=== PATIENT | female | born 1990 | race Caucasian/White ===

== ENCOUNTER 2024-04-15 19:30 | Emergency (ER) | payer OTHER, SELFPAY ==
[2024-04-15 19:45] VITALS: O2SAT 100
[2024-04-15 19:51] VITALS: BP 144/87; PULSE 80; RESP 16; TEMP 37.1; O2SAT 100; BMI 22.3
[2024-04-15 20:38] LABS: Appearance Urine Clear (Clear); Bilirubin Urine 1+ (Negative); Blood Urine Trace-intact (Negative); Color Urine Orange (Yellow); Glucose Urine Negative (Negative); Ketones Urine 3+ (Negative); Leukocyte Esterase Urine Negative (Negative); Nitrite Urine Negative (Negative); Protein Urine 2+ (Negative); Specific Gravity Urine >= 1.030 (1.000-1.030); Urobilinogen Urine 0.2 (0.2-1.0)
[2024-04-15] MEDS: 0.9 % SODIUM CHLORIDE 500 ML 500 ML IV (20:39)
[2024-04-15 20:49] LABS: Bacteria Urine Moderate; Squamous Epithelial Cell Urine Many (None-Few); Starch Urine Many
[2024-04-15 20:52] LABS: Amphetamine Screen Urine Negative (Negative); Barbiturate Screen Urine Negative (Negative); Benzodiazepines Screen Urine Negative (Negative); Cannabinoid Screen Urine Negative (Negative); Cocaine Screen Urine Negative (Negative); Methadone Screen Urine Negative (Negative); Methamphetamines Screen Urine Negative (Negative); Opiate Screen Urine Negative (Negative); Oxycodone Screen Urine Negative (Negative); Phencyclidine Screen Urine Negative (Negative); Tricyclic Antidepressant Urine Negative (Negative)
[2024-04-15 21:00] VITALS: BP 138/84; PULSE 79; RESP 16; TEMP 37.1; O2SAT 100
[2024-04-15 21:00] LABS: Basophils Absolute Auto 0.02 K/uL (0.00-0.30); Basophils Percent Auto 0.3 % (0.0-3.0); Eosinophils Absolute Auto 0.01 K/uL (0.00-0.50); Eosinophils Percent Auto 0.2 % (0.0-7.0); Hematocrit 38.9 % (33.0-51.0); Immature Granulocytes Abs Auto 0.01 K/uL (0.00-0.30); Immature Granulocytes Pct Auto 0.2 %; Mean Corpuscular HGB Conc 33 gm/dL (32-36); Mean Corpuscular Hemoglobin 34 pg (26-34); Mean Corpuscular Volume 101 fL (80-100); Monocytes Percent Auto 7.8 % (0.0-11.0); Neutrophils Percent Auto 80.5 % (42.0-72.0); Platelet Count* 182 K/uL (140-440); RDW Coefficient of Variation % 12.5 % (11.5-15.5); Red Blood Count 3.86 m/uL (4.00-5.20); White Blood Count* 6.66 K/uL (4.50-11.00)
[2024-04-15 21:05] LABS: Slide Review Reflex No
[2024-04-15 21:16] LABS: Chloride* 96 mmol/L (96-114); Potassium* 3.6 mmol/L (3.6-5.1); Sodium* 133 mmol/L (135-149)
[2024-04-15 21:19] LABS: Anion Gap 12 mEq/L (7-15); Blood Urea Nitrogen* 9 mg/dL (5-24); Calcium* 9.6 mg/dL (8.4-10.6); Carbon Dioxide* 25 mmol/L (20-32); Creatinine* 0.5 mg/dL (0.5-1.5); Est. Creatinine Clearance* 149.81; Estimated Glomerular Filt Rate 127 ml/min; Glucose* 91 mg/dL (60-115)
[2024-04-15 21:20] LABS: Amylase* 79 U/L (18-89); Aspartate Amino Transferase* 29 U/L (12-35); Bilirubin Direct* 0.4 mg/dL (0.0-0.5); Total Protein* 8.1 g/dL (6.0-8.3)
[2024-04-15 21:21] LABS: Alanine Aminotransferase* 19 U/L (4-35); Alkaline Phosphatase* 56 U/L (40-150); Lipase* 64 U/L (23-300)
[2024-04-15 21:22] LABS: Fecal Occult Blood* Negative (Negative)
--- NOTE | 2024-04-15 21:23 | ED_ITS ---
HPI - Nausea/Vomiting/Diarrhea General Date Seen: 04/15/24 Chief complaint: Nausea/Vomiting Stated complaint: vomitting, black stool Time Seen by Provider: 04/15/24 20:12 Source: patient and family Mode of arrival: ambulatory Limitations: no limitations History of Present Illness HPI Narrative: Patient is a very nice 33-year-old female who presents here with approximately 2 weeks of nausea on and off, she is easily vomiting once per twice a day usually bile stains fluid. She feels better after she vomits, but it the feeling comes back last night it was worse in the middle the night and actually woke her up. She is not really taking any medications for this. She has not lost any weight, has had some black stools but admits that she is taking Pepto-Bismol. Denies use of ibuprofen Aleve or any other NSAIDs. She is sexually active with her , and is not using contraception but she took a test before she came in and was negative. Denies any significant back pain associated with this a little bit of abdominal discomfort, nothing severe denies any fevers chills or sweats, there has been no weight loss, or any other swelling or redness or rashes. No other people are sick. In the past she has had some problems with reflux and did take a course of Protonix. No history of any abdominal surgeries in the past. No vaginal discharge She does drink alcohol she does socially every day or every other day. Occasional marijuana, but not on a consistent basis no other drugs. A Onset (ago): week(s) Description of vomiting: bilious Description of diarrhea: black tarry Associated nausea: Yes Associated abdominal pain: Yes Location of pain: diffuse Radiation: diffuse Pain consistency: intermittent Severity: moderate Quality: cramping and aching Exacerbating factors: none Relieving factors: none Associated symptoms: nausea/vomiting and decreased urine output Treatment prior to arrival: none Related Data Previous Rx's ?Medication ?Instructions ?Recorded pantoprazole 40 mg tablet,delayed 40 mg PO DAILY #30 tabs 04/15/24 release (Protonix) Allergies Allergy/AdvReac Type Severity Reaction Status Date / Time No Known Drug Allergies Allergy Verified 04/15/24 22:20 Review of Systems Status of ROS: Reports: 10 or more systems reviewed and unremarkable except as noted in History and below GI: Reports: nausea PFSH PFSH Social History Smoking Status: Never smoker Second hand tobacco smoke exposure: No How often do you have a drink containing alcohol: never AUDIT-C Alcohol total score: 0 Non-prescribed substance use: denies use Exam Narrative: Exam Narrative: She is seen in room 3 she is in no apparent distress, alert oriented x3, normal BMI. Pupils are equal round reactive to light there is no scleral icterus redness or TMs are normal oropharynx is normal her neck is supple there is no meningismus, thyroid normal midline palpable not enlarged her chest is good air entry bilaterally with no wheezing crackles noted her heart sounds are normal her abdomen is soft scaphoid no evidence of any significant tenderness organomegaly noted bowel sounds are normal, moves all extremities independently and well no CVA tenderness. Rectal exam is done with nurse present shows some black stools. Hemoccult descent. Const: Vital Signs, click to edit/add: Vital Signs - 24 hr 04/15/24 19:45 04/15/24 19:51 04/15/24 21:00 Temperature 98.7 F 98.7 F Pulse Rate [Right Radial] 80 79 Respiratory Rate 16 16 Blood Pressure [Ri ght Upper Arm] 144/87 H 138/84 Pulse Oximetry 100 100 100 04/15/24 22:47 04/15/24 22:51 Temperature 98.7 F 98.7 F Pulse Rate [Right Radial] 74 74 Respiratory Rate 16 16 Blood Pressure [Ri ght Upper Arm] 135/74 135/74 Pulse Oximetry 100 Documenting provider has reviewed patient's vital signs: yes Course Course ED Course: I discussed with the patient, and her laboratory work was reassuring. There is no evidence of blood on the fecal occult testing. I believe that the black stools are likely related to her taking Pepto-Bismol. I do think however that some nausea medicine may be helpful for her along with the Protonix has sometimes reflux can cause the above symptoms. I also think that she needs follow-up and she may need further testing based on that. I did offer to do a CT scan tonight but after discussion with her she has declined. Vital Signs Vital signs: Initial Vital Signs Pulse Oximetry 100 04/15/24 19:45 Vital Signs Pulse Oximetry 100 04/15/24 19:45 Temperature 98.7 F 04/15/24 22:51 Pulse Rate 74 04/15/24 22:51 Respiratory Rate 16 04/15/24 22:51 Blood Pressure 135/74 04/15/24 22:51 Pulse Oximetry 100 04/15/24 22:47 Medications Administered Medications: Generic Name Dose Route Start Last Admin Trade Name Fe PRN Reason Stop Dose Admin Oral Electrolytes 1,014 ml 04/15/24 21:24 04/15/24 21:47 Electrolytes/Dextrose Oral [place] 1,000 Ml PO 1,014 ml ONCE PRN Administration Discontinued Medications Generic Name Dose Route Start Last Admin Trade Name Fe PRN Reason Stop Dose Admin Sodium Chloride 500 mls @ 500 mls/hr 04/15/24 20:26 04/15/24 21:47 0.9 % Sodium Chloride 500 Ml IV 04/15/24 21:25 Infused .Q1H ONE Infusion Ondansetron HCl 4 mg 04/15/24 21:24 04/15/24 21:46 Ondansetron 2 Mg/Ml Inj IVP 04/15/24 21:25 4 mg ONCE ONE Administration Pantoprazole Sodium 40 mg 04/15/24 21:35 04/15/24 21:46 Pantoprazole Sodium 40 Mg Inj IVP 04/15/24 21:36 40 mg ONCE ONE Administration MDM - Nausea/Vomiting/Diarrhea MDM Narrative Medical decision making narrative: Differential diagnosis includes but is not limited to viral gastroenteritis, drug food poisoning, pyloric stenosis, gastritis, pancreatitis, hepatitis, cholecystitis, appendicitis, bowel obstruction, hyperemesis, cyclic vomiting syndrome, bulimia nervosa, migraine headache, motion sickness and medication side effect. These include the life threatening complications of appendicitis, drug food poisoning and bowel obstruction. Medical Records Attestation: I reviewed the patient's medical records. Lab Data Attestation: I reviewed the patient's lab results. Labs: Lab Results 04/15/24 04/15/24 04/15/24 Range/Units 20:25 20:33 20:35 WBC 6.66 (4.50-11.00) K/uL RBC 3.86 L (4.00-5.20) m/uL Hgb 13.0 (12.0-16.0) gm/dL Hct 38.9 (33.0-51.0) % MCV 101 H (80-100) fL MCH 34 (26-34) pg MCHC 33 (32-36) gm/dL RDW Coeff of [place] 12.5 (11.5-15.5) % Plt Count 182 (140-440) K/uL Neut % (Auto) 80.5 H (42.0-72.0) % Lymph % (Auto) 11.0 L (20-44) % [place] % (Auto) 7.8 (0.0-11.0) % Eos % (Auto) 0.2 (0.0-7.0) % Baso % (Auto) 0.3 (0.0-3.0) % Neut # (Auto) 5.40 (1.7-7.0) K/uL Lymph # (Auto) 0.70 L (0.90-2.90) K/uL [place] # (Auto) 0.50 (0.00-0.90) K/UL Eos # (Auto) 0.01 (0.00-0.50) K/uL Baso # (Auto) 0.02 (0.00-0.30) K/uL Abs Immat Gran (auto) 0.01 (0.00-0.30) K/uL Imm/Tot Granulo (auto) 0.2 % Sodium 133 L (135-149) mmol/L Potassium 3.6 (3.6-5.1) mmol/L Chloride 96 (96-114) mmol/L Carbon Dioxide 25 (20-32) mmol/L Anion Gap 12 (7-15) mEq/L BUN 9 (5-24) mg/dL Creatinine 0.5 (0.5-1.5) mg/dL Estimated Creat Clear 149.81 Estimated GFR 127 ml/min Glucose 91 (60-115) mg/dL Calcium 9.6 (8.4-10.6) mg/dL Total Bilirubin 1.0 (0.1-1.5) mg/dL Direct Bilirubin 0.4 (0.0-0.5) mg/dL AST 29 (12-35) U/L ALT 19 (4-35) U/L Alkaline Phosphatase 56 (40-150) U/L C-Reactive Protein < 0.5 L (0.5-1.0) mg/dL Total Protein 8.1 (6.0-8.3) g/dL Albumin 5.0 (3.3-5.0) g/dL Amylase 79 (18-89) U/L Lipase 64 (23-300) U/L HCG, Qual Negative (Negative) Urine Color [place] A (Yellow) Urine Appearance Clear (Clear) Urine pH 6.0 (5.0-8.5) Ur Specific [place] >= 1.030 (1.000-1.030) Urine Protein 2+ A (Negative) Urine Glucose (UA) Negative (Negative) Urine Ketones 3+ A (Negative) Urine Blood Trace-intact A (Negative) Urine Nitrite Negative (Negative) Urine Bilirubin 1+ A (Negative) Urine Urobilinogen 0.2 (0.2-1.0) Ur Leukocyte Esterase Negative (Negative) Urine RBC 2-5 A (0-2) Urine WBC 2-5 (0-5) Ur Squamous Epith Cells Many A (None-Few) Urine Bacteria Moderate A (None) Urine Starch Many A (None) Stool Occult Blood (Negative) Urine Opiates Screen Negative (Negative) Ur Oxycodone Screen Negative (Negative) Urine Methadone Screen Negative (Negative) Ur Barbiturates Screen Negative (Negative) U Tricyclic Antidepress Negative (Negative) Ur Phencyclidine Scrn Negative (Negative) Ur Amphetamines Screen Negative (Negative) U Methamphetamines Scrn Negative (Negative) U Benzodiazepines Scrn Negative (Negative) Urine Cocaine Screen Negative (Negative) U Marijuana (THC) Screen Negative (Negative) Ur Drug Screen Comment See Note 04/15/24 Range/Units 21:10 WBC (4.50-11.00) K/uL RBC (4.00-5.20) m/uL Hgb (12.0-16.0) gm/dL Hct (33.0-51.0) % MCV (80-100) fL MCH (26-34) pg MCHC (32-36) gm/dL RDW Coeff of [place] (11.5-15.5) % Plt Count (140-440) K/uL Neut % (Auto) (42.0-72.0) % Lymph % (Auto) (20-44) % [place] % (Auto) (0.0-11.0) % Eos % (Auto) (0.0-7.0) % Baso % (Auto) (0.0-3.0) % Neut # (Auto) (1.7-7.0) K/uL Lymph # (Auto) (0.90-2.90) K/uL [place] # (Auto) (0.00-0.90) K/UL Eos # (Auto) (0.00-0.50) K/uL Baso # (Auto) (0.00-0.30) K/uL Abs Immat Gran (auto) (0.00-0.30) K/uL Imm/Tot Granulo (auto) % Sodium (135-149) mmol/L Potassium (3.6-5.1) mmol/L Chloride (96-114) mmol/L Carbon Dioxide (20-32) mmol/L Anion Gap (7-15) mEq/L BUN (5-24) mg/dL Creatinine (0.5-1.5) mg/dL Estimated Creat Clear Estimated GFR ml/min Glucose (60-115) mg/dL Calcium (8.4-10.6) mg/dL Total Bilirubin (0.1-1.5) mg/dL Direct Bilirubin (0.0-0.5) mg/dL AST (12-35) U/L ALT (4-35) U/L Alkaline Phosphatase (40-150) U/L C-Reactive Protein (0.5-1.0) mg/dL Total Protein (6.0-8.3) g/dL Albumin (3.3-5.0) g/dL Amylase (18-89) U/L Lipase (23-300) U/L HCG, Qual (Negative) Urine Color (Yellow) Urine Appearance (Clear) Urine pH (5.0-8.5) Ur Specific [place] (1.000-1.030) Urine Protein (Negative) Urine Glucose (UA) (Negative) Urine Ketones (Negative) Urine Blood (Negative) Urine Nitrite (Negative) Urine Bilirubin (Negative) Urine Urobilinogen (0.2-1.0) Ur Leukocyte Esterase (Negative) Urine RBC (0-2) Urine WBC (0-5) Ur Squamous Epith Cells (None-Few) Urine Bacteria (None) Urine Starch (None) Stool Occult Blood Negative (Negative) Urine Opiates Screen (Negative) Ur Oxycodone Screen (Negative) Urine Methadone Screen (Negative) Ur Barbiturates Screen (Negative) U Tricyclic Antidepress (Negative) Ur Phencyclidine Scrn (Negative) Ur Amphetamines Screen (Negative) U Methamphetamines Scrn (Negative) U Benzodiazepines Scrn (Negative) Urine Cocaine Screen (Negative) U Marijuana (THC) Screen (Negative) Ur Drug Screen Comment Discharge Plan Discharge Clinical Impression: Nausea & vomiting Patient Disposition: Home w/ Parent or Adult Condition: Improved Instructions: Acute Nausea and Vomiting (DC) Additional Instructions: Home rest use of the Zofran in the Protonix. Prescriptions given. Mandatory follow-up with primary care this week to discuss further treatments and options. Recommend absence of alcohol, even though I do not think this is a large contributing factor. Cutting down on the use of ibuprofen and also other type NSAID is suggested. Coffee tea and caffeinated products can also lead to a issues associated with the stomach. Activity Level: Light activity Prescriptions: New pantoprazole [Protonix] 40 mg tablet,delayed release (DR/EC) 40 mg PO DAILY Qty: 30 2RF Follow Up/Referrals: Provider,Not a Local [Primary Care Provider] - Stand Alone Forms: [employer] Info Instructions
[2024-04-15 21:25] LABS: HCG Qualitative Serum* Negative (Negative)
[2024-04-15 21:26] LABS: C Reactive Protein* < 0.5 mg/dL (0.5-1.0)
[2024-04-15] MEDS: PANTOPRAZOLE SODIUM 40 MG INJ IVP (21:46)
[2024-04-15] MEDS: ONDANSETRON 2 MG/ML inj 4 MG IVP (21:46)
[2024-04-15] MEDS: ELECTROLYTES/DEXTROSE ORAL SOL 1,000 ML 1014 ML PO (21:47)
[2024-04-15 22:47] VITALS: BP 135/74; PULSE 74; RESP 16; TEMP 37.1; O2SAT 100
[2024-04-15 22:51] VITALS: BP 135/74; PULSE 74; RESP 16; TEMP 37.1
== END 2024-04-15 22:51 | disposition home or self-care (01) ==
PROVIDERS: Emergency Provider Family Medicine
DX: R11.2 Nausea with vomiting, unspecified (principal)
CPT/HCPCS: 36415; 80048; 80076; 80306; 81001; 82150; 82270; 83690; 84703; 85025; 86140; 87086; 94761; 96374; 96375; 99283; 99284; J2405; J2470; J7030

== ENCOUNTER 2024-05-22 16:37 | Outpatient (CLI) | payer OTHER, SELFPAY | END 2024-05-22 16:38 | disposition home or self-care (01) | PROVIDERS: Visit Provider Emergency Medicine | DX: R71.8 Other abnormality of red blood cells (principal); Z31.69 Encounter for other general counseling and advice on procreation | CPT/HCPCS: 82306; 82607; 82746 ==

== ENCOUNTER 2024-07-12 07:16 | Inpatient (IN) | payer OTHER, SELFPAY ==
[2024-07-12] VITALS (34 sets, daily range): BP systolic 91–147; BP diastolic 57–108; PULSE 68–125; RESP 16–22; TEMP 36.4–37.6; O2SAT 91–100; BMI 22.5
--- NOTE | 2024-07-12 07:57 | ED.GENADULT ---
HPI - General Adult General Date Seen: 07/12/24 Chief complaint: Epistaxis/Nosebleed Stated complaint: bloody nose/vomiting Time Seen by Provider: 07/12/24 07:54 History of Present Illness HPI narrative: 33-year-old female with a history of thrombocytopenia( 04/15/2024 WBC 6.6, hemoglobin 13.0, [id number] count 182), epistaxis, anxiety, GERD who presents with her this morning to the ER for evaluation of nosebleed. Her nosebleed started about 6:00 a.m. this morning at the same time her alarm went off. She was bleeding fairly briskly from both nostrils but worse on the left than on the right. Dark red blood. She also felt some blood going down the back of her throat. She was trying to hold pressure on the bleed but it kept bleeding so she came here to the ER. Here in the ER at. Briefly but then started bleeding again. She is feeling a bit shaky. She is not anticoagulated. She has a history of nosebleeds in apparent he has had them ?packed? in the past but it sounds like she had something placed in her nose which was removed the same-day clinic. She does not currently have any ENT. She has never been diagnosed with any anatomic abnormalities in her nose. No other recent unusual bleeding or bruising. Related Data Previous Rx's ?Medication ?Instructions ?Recorded pantoprazole 40 mg tablet,delayed 40 mg PO DAILY #30 tabs 05/22/24 release (Protonix) Allergies Allergy/AdvReac Type Severity Reaction Status Date / Time No Known Drug Allergies Allergy Verified 05/22/24 15:49 [facility] Medical History (Updated 07/12/24 @ 14:26 by Kadie Oviedo MD) Vertigo ?R42 - Dizziness and giddiness (ICD-10) Nausea ?R11.0 - Nausea (ICD-10) Anxiety ?F41.9 - Anxiety disorder, unspecified (ICD-10) Elevated MCV ?R71.8 - Other abnormality of red blood cells (ICD-10) Epistaxis ?R04.0 - Epistaxis (ICD-10) Surgical History (Updated 07/12/24 @ 14:09 by Kadie Oviedo MD) S/P appendectomy ?Z90.49 - Acquired absence of other specified parts of digestive tract (ICD-10) Social History (Updated 07/12/24 @ 14:08 by Kadie Oviedo MD) Narrative: Works outside the home, 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 Nonsmoker, h/o daily ETOH use, less now. No history of withdrawal. Full Code. What is your current living situation?: I presently have a place to live Problems where you live: no known problems Problems where you live details: N/A In the past 12 months, utilities in danger of being shut off: no In past 12 months, lack of transportation kept you from medical appts, meetings, work, or getting things needed for daily living: no In the past 12 mos, have been you worried that your food would run out before you had money to buy more?: never true In the past 12 mos, the food you bought just didn't last and you didn't have money to buy more?: never true Highest level of school completed/degree received: some college, no degree Smoking Status: Never smoker Do you use any of these nicotine containing products: None Second hand tobacco smoke exposure: No How often do you have a drink containing alcohol: 2-3 times a week Alcohol type: wine How many standard drinks containing alcohol do you have on a typical day: 1 or 2 How often do you have six or more drinks on one occasion: Monthly AUDIT-C Alcohol total score: 5 Non-prescribed substance use: denies use Caffeine: Yes (rare red bull) How often does anyone, including family, friends and others, physically hurt you: never How often does anyone, including family, friends and others, insult or talk down to you: never How often does anyone, including family, friends and others, threaten you with harm: never How often does anyone, including family, friends and others, scream or curse at you: never service: No Exam Narrative: Exam Narrative: Constitutional: Appears well-developed and well-nourished. Alert. Conversant. Somewhat anxious but very polite. HENT: Head: Atraumatic. Nose: No external swelling or bruising or signs of trauma. She has a little bit of blood coming from her left medial eye, likely draining backwards upper nasolacrimal duct. She has active dark red epistaxis from both nostrils, seemingly more on the left. Also little bit of posterior or pharyngeal bleeding. Mouth/Throat: Oral mucosa is clear and moist. no trismus. Small amount of oropharyngeal blood. Otherwise pharyngeal structures look normal. Tonsils symmetric. No tonsillar enlargement, erythema, or exudate. Eyes: Conjunctivae normal. EOM normal. Pupils equal, round, and reactive to light. No scleral icterus. Neck: Normal range of motion. Neck supple. No tracheal deviation present. Cardiovascular: Normal rate, regular rhythm. No gallop. No friction rub. No murmur heard. Symmetric radial artery pulses Pulmonary/Chest: Effort normal. No stridor. No respiratory distress. No wheezes. No rales. No rhonchi . Musculoskeletal: RUE: Normal range of motion. No tenderness. No deformity LUE: Normal range of motion. No tenderness. No deformity RLE: Normal range of motion. No edema. No tenderness. No deformity LLE: Normal range of motion. No edema. No tenderness. No deformity Neurological: Alert and oriented to person, place, and time. Normal strength. CN II-VII intact. No sensory deficit. GCS eye subscore is 4. GCS verbal subscore is 5. GCS motor subscore is 6. Normal coordination Skin: Skin is warm and dry. No rash noted. No pallor. Normal capillary refill. Psychiatric: Normal mood. Anxious and shaky. Const: Vital Signs, click to edit/add: Vital Signs - 24 hr 07/12/24 07:22 07/12/24 09:30 07/12/24 09:45 Temperature 98.0 F Pulse Rate 71 Pulse Rate [Pulse Oximeter] 98 Respiratory Rate 16 Blood Pressure 108/85 Blood Pressure [Ri ght Arm] Blood Pressure [Ri ght Upper Arm] 122/82 93/57 L Pulse Oximetry 98 96 Oxygen Delivery Me thod Room Air 07/12/24 09:46 07/12/24 10:00 07/12/24 10:02 Temperature Pulse Rate 71 73 102 H Pulse Rate [Pulse Oximeter] Respiratory Rate Blood Pressure 100/87 Blood Pressure [Ri ght Arm] Blood Pressure [Ri ght Upper Arm] Pulse Oximetry 97 98 98 Oxygen Delivery Me thod 07/12/24 10:03 07/12/24 10:22 07/12/24 10:25 Temperature Pulse Rate 95 Pulse Rate [Pulse Oximeter] Respiratory Rate Blood Pressure 105/92 H Blood Pressure [Ri ght Arm] Blood Pressure [Ri ght Upper Arm] Pulse Oximetry 98 97 Oxygen Delivery Me thod 07/12/24 10:30 07/12/24 10:37 07/12/24 10:42 Temperature Pulse Rate 125 H 109 H 108 H Pulse Rate [Pulse Oximeter] Respiratory Rate Blood Pressure 136/108 H 125/107 H Blood Pressure [Ri ght Arm] Blood Pressure [Ri ght Upper Arm] Pulse Oximetry 99 98 100 Oxygen Delivery Me thod 07/12/24 10:45 07/12/24 11:01 07/12/24 11:04 Temperature 98.9 F Pulse Rate 105 H 80 Pulse Rate [Pulse Oximeter] Respiratory Rate 22 Blood Pressure 107/78 91/78 Blood Pressure [Ri ght Arm] Blood Pressure [Ri ght Upper Arm] Pulse Oximetry 93 Oxygen Delivery Me thod Room Air 07/12/24 11:07 07/12/24 11:11 07/12/24 11:15 Temperature 98.9 F Pulse Rate 89 80 89 Pulse Rate [Pulse Oximeter] Respiratory Rate Blood Pressure 91/78 Blood Pressure [Ri ght Arm] Blood Pressure [Ri ght Upper Arm] Pulse Oximetry 95 96 95 Oxygen Delivery Me thod 07/12/24 11:20 07/12/24 11:49 07/12/24 12:15 Temperature 98.9 F 98.9 F 99.0 F Pulse Rate 96 90 81 Pulse Rate [Pulse Oximeter] Respiratory Rate 16 16 16 Blood Pressure 116/86 129/95 H 134/93 H Blood Pressure [Ri ght Arm] Blood Pressure [Ri ght Upper Arm] Pulse Oximetry 96 97 96 Oxygen Delivery Me thod Room Air Room Air Room Air 07/12/24 12:38 07/12/24 13:01 Temperature 99.3 F 99.0 F Pulse Rate 101 H Pulse Rate [Pulse Oximeter] 103 H Respiratory Rate 16 16 Blood Pressure 147/99 H Blood Pressure [Ri ght Arm] 131/95 H Blood Pressure [Ri ght Upper Arm] Pulse Oximetry 99 98 Oxygen Delivery Me thod Room Air Room Air Course Course ED Course: Patient arrived his wound room to to ER for. I saw this patient is my 1st patient this morning coming in relieving the swift tender. When I checked her in room 4 she was low lying with her head on the left arm rest. She did have some slow bleeding from both nostrils but had some Kleenex packed. We removed the Kleenex and tried to evaluate. She did have some fairly rapid dripping bleeding from both nostrils. We applied direct pressure with fingers and the nasal clamp. Hemostasis was not achieved even after several minutes of direct pressure. We then administered Afrin 2 sprays into each nostril and reapplied the clamp. Bleeding seemed to slow somewhat but did not stop. Labs drawn to check platelet count and hemoglobin. I re-evaluated with otoscope. Due to the amount of bleeding and blood in the nose there was no clear site for cautery I instilled 3 mL of 1% lidocaine with epi using a mucosal Magen matters is denies in the left nostril. I then applied a cotton ball soaked in 2% viscous lidocaine. Wound place the clamp and the cotton ball in place the bleeding did seem to slow and stop. After 10 minutes we removed the cotton ball and re-evaluated. Most of the blood and clots that had been present were now removed. Still no visible site of bleeding in the anterior nares. She had recurrence of fairly brisk bleeding again coming up both nostrils and going on the back of her throat. She has vomited up probably 100 mL of dark red blood. She also spit up some clots. Still active bleeding. We instilled cotton ball soaked in 500 mg of TXA in her left nostril and reapplied pressure. Still ineffective in achieving hemostasis. She had ongoing bleeding. She adamantly did not want to have her left nostril packed, citing discomfort from previous procedure I contacted our ENT provider, Dr. Jean. He recommends that there is no option for stopping her nose bleed other than packing and that we must proceed. Additionally she was quite shaky. Starting to look a little bit pale. Blood pressure remains stable. Pulse at times would drift down from the 70s to 60s. Suspect probably combination of blood loss and vasovagal. IV established and starting IV fluids. I reviewed this with the patient and her and they understand. She has already had local anesthesia with lidocaine. She agreed to do packing in the left nostril I placed a 5.5 cm rapid rhino. I inflated the balloon with 5 mL of air until the highway patrol pilot balloon was fairly tense. This did seem to achieve hemostasis. Recheck-she has had recurrent bleeding. It looks like her rapid rhino his slipped out about 1 cm. I deflated the balloon and attempted to reposition it and reinflate the balloon. This was not effective in achieving hemostasis. I removed the 5.5 cm rapid rhino. I placed a 7.5 cm rapid rhino in the left nostril. I inflated the 7.5 cm balloon until the highway patrol pilot balloon was tense. Even with this the patient had ongoing bleeding. I placed a 5.5 cm rapid rhino into her right nostril. Still ineffective in achieving hemostasis I called again to our ENT provider. He agree that this point we have no option but to placed a anterior/posterior pack. Additionally I placed a phone call to [place] to Dr. Negron or the allergy, anticipating that are neck is pack may also be ineffective. In that case she would need IR procedure/embolization. Patient was becoming more lightheaded and shaky. She was looking pale. Blood pressure still normal but lower. Heart rate remained normal I removed both of the rapid rhino device is from the left and right nostril because they were not effective in controlling bleeding. After lubrication with viscous lidocaine I placed the anterior/posterior balloon to the patient's left nostril. I inflated the posterior balloon with 10 mL of air an anterior balloon with 15 mL of air. With this we did achieve hemostasis. Patient remained shaky and lightheaded, dizzy, and did clinically look pale. Presentation concerning for acute blood loss anemia. Although blood pressure was stable, I felt that she did need transfusion. Based on the rapid amount of blood loss she had experienced here in the ER, it was not safe to wait for cross mass blood. We transfused 1 unit of uncross matched O negative blood. Patient tolerated this well. No signs of transfusion reaction. Discussed again with our ENT provider. Clearly this patient requires hospitalization for monitoring and treatment. Question would be is she is safe to admit here in [place] for monitoring with ENT consult. Dr. Jean is not going to be in the building and immediately available all night but would be amenable by phone. Also she has further bleeding despite the anterior/posterior pack, would need evaluation by Interventional Radiology for embolization. We are waiting for a phone call back from Interventional Radiology from [facility]. They were in a case and not able to call back. While this was going on we are monitoring the patient here in the ER and she remains stable. She was feeling better even with the anterior/posterior pack in. Vital signs remained stable. No ongoing active bleeding here in the ER. Multiple bedside rechecks. She remained stable. No bleeding CBC came back showing mild thrombocytopenia with a platelet count of 108. Hemoglobin 11. I suspect clinically her hemoglobin has dropped lower than that but she has not had time to hemo dilute. Will require serial hemoglobins. She is in the process receiving 1 unit of packed red cells at this time. In discussion with the ENT, given current stability after period of observation, we feel that she can be admitted here to [place] for observation. Discussed with our hospitalist, Dr. Oviedo, who agrees to admit Vital Signs Vital signs: Initial Vital Signs Temperature 98.0 F 07/12/24 07:22 Temperature Source Temporal Artery Scan 07/12/24 07:22 Pulse Rate 98 07/12/24 07:22 Respiratory Rate 16 07/12/24 07:22 Blood Pressure 122/82 07/12/24 07:22 Blood Pressure Mean 95 07/12/24 07:22 Blood Pressure Position Sitting 07/12/24 07:22 Pulse Oximetry 98 07/12/24 07:22 Oxygen Delivery Method Room Air 07/12/24 07:22 Vital Signs Temperature 98.0 F 07/12/24 07:22 Pulse Rate 98 07/12/24 07:22 Respiratory Rate 16 07/12/24 07:22 Blood Pressure 122/82 07/12/24 07:22 Pulse Oximetry 98 07/12/24 07:22 Oxygen Delivery Method Room Air 07/12/24 07:22 Temperature 98.2 F 07/12/24 20:35 Pulse Rate 101 H 07/12/24 20:35 Respiratory Rate 18 07/12/24 19:00 Blood Pressure 118/76 07/12/24 20:35 Pulse Oximetry 91 07/12/24 20:35 Oxygen Delivery Method Room Air 07/12/24 20:35 Medications Administered Medications: Generic Name Dose Route Start Last Admin Trade Name Freq PRN Reason Stop Dose Admin Acetaminophen 975 mg 07/12/24 13:22 07/12/24 14:00 Acetaminophen 325 Mg Tablet PO 975 mg Q6H PRN Administration Benzocaine/Menthol 1 each 07/12/24 12:55 07/12/24 15:41 Benzocaine/Menthol 1 Each Lozenge MUCOUS MEM 1 each Q1H PRN Administration sore/dry throat Cephalexin HCl 250 mg 07/12/24 14:15 07/12/24 15:41 Cephalexin 250 Mg Capsule PO 250 mg TID JUAN Administration Guaifenesin/Codeine Phosphate 10 ml 07/12/24 13:58 07/12/24 18:57 Guaif/Codeine 200/20mg/10 Ml Solution PO 10 ml Q4H PRN Administration Hydromorphone HCl 0.5 mg 07/12/24 18:37 07/12/24 20:02 Hydromorphone 0.5 Mg/0.5 Ml Inj IVP 0.5 mg Q2H PRN Administration Lorazepam 0.5 mg 07/12/24 18:37 07/12/24 18:57 Lorazepam 0.5 Mg Tablet PO 0.5 mg Q4H PRN Administration Oxymetazoline HCl 1 spray 07/12/24 08:08 07/12/24 08:30 Oxymetazoline 0.05% Nasal [place] NOSTRIL-B 1 spray BID PRN Administration Discontinued Medications Generic Name Dose Route Start Last Admin Trade Name Freq PRN Reason Stop Dose Admin Fentanyl 50 mcg 07/12/24 11:36 07/12/24 10:30 Fentanyl 100 Mcg/2 Ml Inj IVP 07/12/24 11:37 50 mcg ONCE ONE Administration Fentanyl 50 mcg 07/12/24 11:37 07/12/24 10:40 Fentanyl 100 Mcg/2 Ml Inj IVP 07/12/24 11:38 50 mcg ONCE ONE Administration Sodium Chloride 1,000 mls @ 1,000 mls/hr 07/12/24 10:15 07/12/24 10:41 0.9 % Sodium Chloride 1000 Ml IV 07/12/24 11:14 Infused .Q1H JUAN Infusion Lidocaine HCl 15 ml 07/12/24 08:08 07/12/24 08:30 Lidocaine Viscous 2% 15 Ml Solution SWISH/SWAL 07/12/24 08:09 15 ml ONCE ONE Administration Lidocaine/Epinephrine 20 ml 07/12/24 08:08 07/12/24 08:26 Lidocaine 1%-Epi 1:100,000 INFILTRATI 07/12/24 08:09 20 ml ONCE ONE Administration Lorazepam 0.5 mg 07/12/24 11:36 07/12/24 10:35 Lorazepam 2 Mg/Ml Inj IVP 07/12/24 11:37 0.5 mg ONCE ONE Administration Ondansetron HCl 4 mg 07/12/24 10:10 07/12/24 09:40 Ondansetron 2 Mg/Ml Inj IVP 07/12/24 10:11 4 mg ONCE ONE Administration Silver Nitrate/Potassium Nitrate 1 each 07/12/24 08:08 07/12/24 13:45 Silver Nitrate Applicator 1 Each Stick..Ea. TOPICAL 07/12/24 08:09 Not Given ONCE ONE Tranexamic Acid 500 mg 07/12/24 08:59 07/12/24 09:15 Tranexamic Acid 100 Mg/Ml Inj TOPICAL 07/12/24 09:00 500 mg ONCE ONE Administration Medical Decision Making Lab Data Labs: Lab Results 07/12/24 07/12/24 Range/Units 08:45 12:58 WBC 6.41 10.04 (4.50-11.00) K/uL RBC 3.58 L 3.55 L (4.00-5.20) m/uL Hgb 12.0 11.9 L (12.0-16.0) gm/dL Hct 36.2 35.9 (33.0-51.0) % MCV 101 H 101 H (80-100) fL MCH 34 34 (26-34) pg MCHC 33 33 (32-36) gm/dL RDW Coeff of Barry 13.0 13.6 (11.5-15.5) % Plt Count 102 L 99 L (140-440) K/uL Neut % (Auto) 70.9 88.1 H (42.0-72.0) % Lymph % (Auto) 14.4 L 4.3 L (20-44) % Sutter % (Auto) 13.4 H 7.2 (0.0-11.0) % Eos % (Auto) 0.6 0.0 (0.0-7.0) % Baso % (Auto) 0.5 0.2 (0.0-3.0) % Neut # (Auto) 4.55 8.80 H (1.7-7.0) K/uL Lymph # (Auto) 0.90 0.40 L (0.90-2.90) K/uL Sutter # (Auto) 0.90 0.70 (0.00-0.90) K/UL Eos # (Auto) 0.04 0.00 (0.00-0.50) K/uL Baso # (Auto) 0.03 0.02 (0.00-0.30) K/uL Abs Immat Gran (auto) 0.01 0.02 (0.00-0.30) K/uL Imm/Tot Granulo (auto) 0.2 0.2 % INR 1.00 (0.91-1.10) Sodium 135 (135-149) mmol/L Potassium 4.1 (3.6-5.1) mmol/L Chloride 101 (96-114) mmol/L Carbon Dioxide 24 (20-32) mmol/L Anion Gap 10 (7-15) mEq/L BUN 14 (5-24) mg/dL Creatinine 0.5 (0.5-1.5) mg/dL Estimated GFR 127 ml/min Glucose 88 (60-115) mg/dL Calcium 9.1 (8.4-10.6) mg/dL Total Bilirubin 1.0 (0.1-1.5) mg/dL Direct Bilirubin 0.4 (0.0-0.5) mg/dL AST 98 H (12-35) U/L ALT 73 H (4-35) U/L Alkaline Phosphatase 69 (40-150) U/L Total Protein 7.3 (6.0-8.3) g/dL Albumin 4.2 (3.3-5.0) g/dL HCG, Qual Negative (Negative) Blood Type O Negative Antibody Screen NEGATIVE Crossmatch (AHG) See Detail Critical Care Time Critical Care Time Critical Care Time: Yes Attestation: The patient required my highest level preparedness to intervene emergently and I personally spent this critical care time directly and personally managing the patient. This critical care time included: Obtaining a history; Examining the patient; Pulse oximetry; Ordering and reviewing of studies; Arranging urgent treatment with development of a management plan; Evaluation of patients response to treatment; Frequent reassessment discussions with other providers. This critical care time was performed to assess and manage the high probability of imminent life-threatening deterioration that could result in multiorgan failure. It was exclusive of separate billable procedures and treating other patients and teaching time. Total Critical Care Time in Minutes: 60 Discharge Plan Discharge Clinical Impression: Epistaxis, Anemia Patient Disposition: Admitted As Observation
[2024-07-12] MEDS: LIDOCAINE 1%-EPI 1:100,000 20 ML INFILTRATI (08:26)
[2024-07-12] MEDS: OXYMETAZOLINE 0.05% NASAL SPRAY 1 SPRAY NOSTRIL-B (08:30)
[2024-07-12 08:54] LABS: Basophils Absolute Auto 0.03 K/uL (0.00-0.30); Basophils Percent Auto 0.5 % (0.0-3.0); Eosinophils Absolute Auto 0.04 K/uL (0.00-0.50); Eosinophils Percent Auto 0.6 % (0.0-7.0); Hematocrit 36.2 % (33.0-51.0); Immature Granulocytes Abs Auto 0.01 K/uL (0.00-0.30); Immature Granulocytes Pct Auto 0.2 %; Lymphocytes Percent Auto 14.4 % (20-44); Mean Corpuscular HGB Conc 33 gm/dL (32-36); Mean Corpuscular Hemoglobin 34 pg (26-34); Mean Corpuscular Volume 101 fL (80-100); Monocytes Percent Auto 13.4 % (0.0-11.0); Neutrophils Absolute Auto 4.55 K/uL (1.7-7.0); Neutrophils Percent Auto 70.9 % (42.0-72.0); Platelet Count* 102 K/uL (140-440); Red Blood Count 3.58 m/uL (4.00-5.20); White Blood Count* 6.41 K/uL (4.50-11.00)
[2024-07-12 08:55] LABS: Slide Review Reflex No
[2024-07-12] MEDS: TRANEXAMIC ACID 100 MG/ML INJ 500 MG TOPICAL (09:15)
[2024-07-12] MEDS: 0.9 % SODIUM CHLORIDE 1000 ml 1,000 ML IV (09:40)
[2024-07-12] MEDS: ONDANSETRON 2 MG/ML inj 4 MG IVP ×2 (09:40→22:16)
[2024-07-12] MEDS: fentaNYL 100 MCG/2 ML inj 50 MCG IVP ×2 (10:30→10:40)
[2024-07-12] MEDS: LORazepam 2 MG/ML inj 0.5 MG IVP (10:35)
[2024-07-12 12:22] LABS: Chloride* 101 mmol/L (96-114); Sodium* 135 mmol/L (135-149)
[2024-07-12 12:23] LABS: Potassium* 4.1 mmol/L (3.6-5.1)
[2024-07-12 12:25] LABS: Creatinine* 0.5 mg/dL (0.5-1.5); Estimated Glomerular Filt Rate 127 ml/min
[2024-07-12 12:26] LABS: Anion Gap 10 mEq/L (7-15); Blood Urea Nitrogen* 14 mg/dL (5-24); Calcium* 9.1 mg/dL (8.4-10.6); Carbon Dioxide* 24 mmol/L (20-32); Glucose* 88 mg/dL (60-115)
[2024-07-12 12:28] LABS: HCG Qualitative Serum* Negative (Negative)
[2024-07-12 12:37] LABS: Prothrombin Time 13.8 Seconds
[2024-07-12] MEDS: BENZOCAINE/MENTHOL 1 EACH LOZENGE MUCOUS MEM ×3 (13:01→15:41)
[2024-07-12 13:06] LABS: Basophils Absolute Auto 0.02 K/uL (0.00-0.30); Basophils Percent Auto 0.2 % (0.0-3.0); Hematocrit 35.9 % (33.0-51.0); Hemoglobin* 11.9 gm/dL (12.0-16.0); Immature Granulocytes Abs Auto 0.02 K/uL (0.00-0.30); Immature Granulocytes Pct Auto 0.2 %; Lymphocytes Percent Auto 4.3 % (20-44); Mean Corpuscular HGB Conc 33 gm/dL (32-36); Mean Corpuscular Hemoglobin 34 pg (26-34); Mean Corpuscular Volume 101 fL (80-100); Monocytes Percent Auto 7.2 % (0.0-11.0); Neutrophils Percent Auto 88.1 % (42.0-72.0); Platelet Count* 99 K/uL (140-440); RDW Coefficient of Variation % 13.6 % (11.5-15.5); Red Blood Count 3.55 m/uL (4.00-5.20); White Blood Count* 10.04 K/uL (4.50-11.00)
[2024-07-12 13:21] LABS: Slide Review Reflex No
--- NOTE | 2024-07-12 13:24 | PM.IMHP1 ---
Hospitalist- H&P: HPI History of Present Illness Date Seen: 07/12/24 Chief complaint: bloody nose/vomiting Narrative: Damari Blake is a 33 year old female with a history of nose bleeds who presented to our ER this morning for nose bleed out of both nostrils. She was having blood on the back of her throat and vomiting secondary to symptoms. Attempted limited interventions without success; eventually needed to pack left nare. ER: - Hgb 12.0, platelets 182 on arrival, INR within normal limits - transfused 1U PRBCs given amount of bleeding - packed L nare per above - Dr. Jean from ENT consulted from ER and will see patient tomorrow morning Upon arrival to the floor, patient's repeat CBC completed, Hgb of 11.9 and platelets 99. She has a mild sore throat from vomiting, no other concerns for hospitalist team. History of mild thrombocytopenia, other histories updated below. Dr. Norris is PCP. Review of Systems Status of ROS: Reports: 10 or more systems reviewed and unremarkable except as noted in History and below [facility] Medical History (Updated 07/12/24 @ 14:26 by Kadie Oviedo MD) Vertigo ?R42 - Dizziness and giddiness (ICD-10) Nausea ?R11.0 - Nausea (ICD-10) Anxiety ?F41.9 - Anxiety disorder, unspecified (ICD-10) Elevated MCV ?R71.8 - Other abnormality of red blood cells (ICD-10) Epistaxis ?R04.0 - Epistaxis (ICD-10) Surgical History (Updated 07/12/24 @ 14:09 by Kadie Oviedo MD) S/P appendectomy ?Z90.49 - Acquired absence of other specified parts of digestive tract (ICD-10) Social History (Updated 07/12/24 @ 14:08 by Kadie Oviedo MD) Narrative: Works outside the home, 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 Nonsmoker, h/o daily ETOH use, less now. No history of withdrawal. Full Code. What is your current living situation?: I presently have a place to live Problems where you live: no known problems Problems where you live details: N/A In the past 12 months, utilities in danger of being shut off: no In past 12 months, lack of transportation kept you from medical appts, meetings, work, or getting things needed for daily living: no In the past 12 mos, have been you worried that your food would run out before you had money to buy more?: never true In the past 12 mos, the food you bought just didn't last and you didn't have money to buy more?: never true Highest level of school completed/degree received: some college, no degree Smoking Status: Never smoker Do you use any of these nicotine containing products: None Second hand tobacco smoke exposure: No How often do you have a drink containing alcohol: 2-3 times a week Alcohol type: wine How many standard drinks containing alcohol do you have on a typical day: 1 or 2 How often do you have six or more drinks on one occasion: Monthly AUDIT-C Alcohol total score: 5 Non-prescribed substance use: denies use Caffeine: Yes (rare red bull) How often does anyone, including family, friends and others, physically hurt you: never How often does anyone, including family, friends and others, insult or talk down to you: never How often does anyone, including family, friends and others, threaten you with harm: never How often does anyone, including family, friends and others, scream or curse at you: never service: No Meds Home Medications and Allergies Home Medication Comments: PPI is only daily medication Allergies Allergy/AdvReac Type Severity Reaction Status Date / Time No Known Drug Allergies Allergy Verified 05/22/24 15:49 Exam Narrative: Exam Narrative: GEN: Alert and oriented, nontoxic but mildly uncomfortable from nasal packing HEENT: EOMIs bilaterally, no scleral icterus, packing in L nare CV: RRR, No concerning murmurs, rubs, or gallops R: LCTA bilaterally without concerning wheezing Ext: wwp, no concerning edema Skin: No concerning skin lesions or rashes on exposed skin Neuro: Nonfocal Psych: Appropriate Const: Vital Signs, click to edit/add: Vital Signs - 24 hr 07/12/24 07:22 07/12/24 09:30 07/12/24 09:45 Temperature 98.0 F Pulse Rate 71 Pulse Rate [Pulse Oximeter] 98 Respiratory Rate 16 Blood Pressure 108/85 Blood Pressure [Ri ght Arm] Blood Pressure [Ri ght Upper Arm] 122/82 93/57 L Pulse Oximetry 98 96 Oxygen Delivery Me thod Room Air 07/12/24 09:46 07/12/24 10:00 07/12/24 10:02 Temperature Pulse Rate 71 73 102 H Pulse Rate [Pulse Oximeter] Respiratory Rate Blood Pressure 100/87 Blood Pressure [Ri ght Arm] Blood Pressure [Ri ght Upper Arm] Pulse Oximetry 97 98 98 Oxygen Delivery Me thod 07/12/24 10:03 07/12/24 10:22 07/12/24 10:25 Temperature Pulse Rate 95 Pulse Rate [Pulse Oximeter] Respiratory Rate Blood Pressure 105/92 H Blood Pressure [Ri ght Arm] Blood Pressure [Ri ght Upper Arm] Pulse Oximetry 98 97 Oxygen Delivery Me thod 07/12/24 10:30 07/12/24 10:37 07/12/24 10:42 Temperature Pulse Rate 125 H 109 H 108 H Pulse Rate [Pulse Oximeter] Respiratory Rate Blood Pressure 136/108 H 125/107 H Blood Pressure [Ri ght Arm] Blood Pressure [Ri ght Upper Arm] Pulse Oximetry 99 98 100 Oxygen Delivery Me thod 07/12/24 10:45 07/12/24 11:01 07/12/24 11:04 Temperature 98.9 F Pulse Rate 105 H 80 Pulse Rate [Pulse Oximeter] Respiratory Rate 22 Blood Pressure 107/78 91/78 Blood Pressure [Ri ght Arm] Blood Pressure [Ri ght Upper Arm] Pulse Oximetry 93 Oxygen Delivery Me thod Room Air 07/12/24 11:07 07/12/24 11:11 07/12/24 11:15 Temperature 98.9 F Pulse Rate 89 80 89 Pulse Rate [Pulse Oximeter] Respiratory Rate Blood Pressure 91/78 Blood Pressure [Ri ght Arm] Blood Pressure [Ri ght Upper Arm] Pulse Oximetry 95 96 95 Oxygen Delivery Me thod 07/12/24 11:20 07/12/24 11:49 07/12/24 12:15 Temperature 98.9 F 98.9 F 99.0 F Pulse Rate 96 90 81 Pulse Rate [Pulse Oximeter] Respiratory Rate 16 16 16 Blood Pressure 116/86 129/95 H 134/93 H Blood Pressure [Ri ght Arm] Blood Pressure [Ri ght Upper Arm] Pulse Oximetry 96 97 96 Oxygen Delivery Me thod Room Air Room Air Room Air 07/12/24 12:38 07/12/24 13:01 Temperature 99.3 F 99.0 F Pulse Rate 101 H Pulse Rate [Pulse Oximeter] 103 H Respiratory Rate 16 16 Blood Pressure 147/99 H Blood Pressure [Ri ght Arm] 131/95 H Blood Pressure [Ri ght Upper Arm] Pulse Oximetry 99 98 Oxygen Delivery Me thod Room Air Room Air Hospitalist - H&P: Result Labs Labs: Short CBC 07/12/24 07/12/24 Range/Units 08:45 12:58 WBC 6.41 10.04 (4.50-11.00) K/uL Hgb 12.0 11.9 L (12.0-16.0) gm/dL Hct 36.2 35.9 (33.0-51.0) % Plt Count 102 L 99 L (140-440) K/uL BMP 07/12/24 08:45 Sodium 135 Potassium 4.1 Chloride 101 Carbon Dioxide 24 BUN 14 Creatinine 0.5 Glucose 88 Calcium 9.1 Assessment and Plan Assessment and plan (1) Epistaxis: Problem comment: - severe, required 1U PRBCs in ED 07/12/24 - packing placed in ED, ENT to see 07/12/24 - Keflex 250mg TID, follow Hgb Status: Acute (2) Thrombocytopenia: Problem comment: - follow platelets (99 07/12/24) Status: Acute (3) Nausea: Problem comment: - likely 2/2 posterior drainage from epistaxis, prn antiemetics Status: Acute Plan - per above - updated at bedside, questions answered
[2024-07-12] MEDS: GUAIF/CODEINE 200/20MG/10 ML SOLUTION PO ×2 (14:00→18:57)
[2024-07-12] MEDS: ACETAMINOPHEN 325 MG TABLET 975 MG PO ×2 (14:00→23:59)
[2024-07-12 14:18] LABS: Albumin* 4.2 g/dL (3.3-5.0)
[2024-07-12 14:21] LABS: Alkaline Phosphatase* 69 U/L (40-150); Aspartate Amino Transferase* 98 U/L (12-35); Bilirubin Direct* 0.4 mg/dL (0.0-0.5); Total Protein* 7.3 g/dL (6.0-8.3)
[2024-07-12 14:22] LABS: Alanine Aminotransferase* 73 U/L (4-35)
[2024-07-12] MEDS: cephALEXin 250 MG CAPSULE PO ×2 (15:41→21:30)
[2024-07-12 17:08] LABS: Basophils Absolute Auto 0.02 K/uL (0.00-0.30); Basophils Percent Auto 0.2 % (0.0-3.0); Hematocrit 34.7 % (33.0-51.0); Hemoglobin* 11.4 gm/dL (12.0-16.0); Immature Granulocytes Abs Auto 0.07 K/uL (0.00-0.30); Immature Granulocytes Pct Auto 0.8 %; Lymphocytes Percent Auto 7.7 % (20-44); Mean Corpuscular HGB Conc 33 gm/dL (32-36); Mean Corpuscular Hemoglobin 33 pg (26-34); Mean Corpuscular Volume 100 fL (80-100); Monocytes Percent Auto 8.8 % (0.0-11.0); Neutrophils Percent Auto 82.5 % (42.0-72.0); Platelet Count* 100 K/uL (140-440); RDW Coefficient of Variation % 13.8 % (11.5-15.5); Red Blood Count 3.47 m/uL (4.00-5.20); White Blood Count* 8.72 K/uL (4.50-11.00)
[2024-07-12 17:13] LABS: Slide Review Reflex No
[2024-07-12 17:18] LABS: Partial Thromboplastin Time* 25 Seconds (23-33)
--- NOTE | 2024-07-12 18:39 | P.EN_ITS ---
Chart Event Note Time Seen by Provider: 18:00 Date Seen: 07/12/24 Chart Event Note: Year old woman with severe epistaxis. Various modalities attempted to achieve control in the emergency department. Attempted rapid rhino packing bilaterally without success. Eventually utilized the dual-chamber EpiStax on the left side and seemed to achieve a significant reduction in the bleeding. I spoke with Dr. Pulido in who placed the epistax device any inform me that he filled the posterior chamber with a maximum volume of 10 mL of air in the anterior chamber he also placed about 10 mL of air, in the maximum volume for the anterior packing is 30 mL. Since around 3:00 PM patient has had 3 episodes of rebleeding. Bleeds for a good 30-45 minutes and then abates. Blood from left nares only. After the 3rd episode of rebleeding I placed 5 mL more of air into the anterior chamber for a total of 15 mL, again the maximum volume of this anterior chamber is 30 mL. I called and spoke with Dr. Jean, ear nose throat specialist, who is scheduled to see the patient in the morning if she is still in the hospital at that time. He suggested that if it continues that we continue to fill the anterior chamber with more air as long as she is tolerating it to the maximum amount of 30 mL. Additionally if she starts to hemorrhage he suggests that we put a 2nd similar device on the right side to see if the additional support might stop the bleeding. He still intends on seeing her in the morning if she is still here. I called and spoke with the neuro interventional radiologist at [facility], Dr. Storey. He indicates that she could indeed benefit from an angiogram and possible embolization procedure. Given that she is currently hemodynamically stable he did not think this needed to be done urgently or emergently. He did recommend that we transfer the patient to [place] so they can monitor her as we are and prepare her for a consultation in the morning including angiogram and embolization if warranted. Unfortunately they have no bed availability at [facility] at this time. Nevertheless they placed the patient on a waiting list. They will call if a bed becomes available. The plan now is to try to keep the patient comfortable and stable thought all possible so that our Ear Nose Throat specialist can see the patient here in the hospital tomorrow morning. Concurrently she is on a waiting list at [facility] for consultation with interventional radiologist and possible embolization procedure to the sphenopalatine artery. Should her condition decompensate overnight we will need to call back to [place] and come up with a more emergent plan. I reviewed this with the patient and her . Answered their questions. They expressed understanding. They support this plan. I have ordered antiemetics p.r.n., increased analgesia p.r.n., and anxiolytic p.r.n..
[2024-07-12] MEDS: LORazepam 0.5 MG TABLET PO (18:57)
--- NOTE | 2024-07-12 19:29 | PC.NURSE ---
End of shift-- Pleasant and cooperative, alert and oriented but anxious and trembling patient was admitted to [facility] via wheelchair this afternoon. VSS and highest temp this shift 99.0F. She c/o pain in throat and left ear that improved with Tylenol and Robitussin with Codeine per pt statement. [place] nasal balloon in left nostril. Initially small amount of oozing blood was noted beneath left nostril. As the evening progressed, bleeding increased to moderate and MD was notified. Bleeding had resolved by time MD arrived to bedside, bleeding had improved. Within an hour, however, bleeding increased again to point where patient was saturating several gauze per hour and MD was notified again. MD again came to bedside, consulted with ENT, IR at [facility] (considering transfer) and ED MD who also came to patient's bedside. Per his recommendation, 5ml more air was inserted into bivalve balloon by MD and bleeding has again resolved at this time. LS CTA. She has denied nausea, but has gagged on blood a few times this evening. She ate only small amounts of fruit and broth for dinner. She was up to the BR independently and tolerated it well. is at bedside and appears loving and supportive. Report to SANDY Parra.
[2024-07-12] MEDS: HYDROmorphone 0.5 mg/0.5 ml inj IVP ×2 (20:02→22:52)
[2024-07-12 21:10] LABS: Hematocrit 31.8 % (33.0-51.0); Hemoglobin* 10.6 gm/dL (12.0-16.0); Mean Corpuscular HGB Conc 33 gm/dL (32-36); Mean Corpuscular Hemoglobin 33 pg (26-34); Mean Corpuscular Volume 100 fL (80-100); Platelet Count* 101 K/uL (140-440); Red Blood Count 3.19 m/uL (4.00-5.20); White Blood Count* 10.79 K/uL (4.50-11.00)
[2024-07-12 21:14] LABS: Slide Review Reflex No
--- NOTE | 2024-07-12 22:07 | PC.NURSE ---
I was called to the bedside around 2029 patient was reporting dizziness. Per primary nurse, VSS. Nose was currently bleeding, patient was sitting forward holding pressure to nose. Bleeding did subside as I was with patient. Helped patient get cleaned up and she reports feeling a little better. Patient did receive medications prior to dizziness as well. Dr. Kurtz was updated. Also called [facility] to see if there is ETA for transfer. Lead nurse called back and shared this would likely not happen until morning but if patient status changes have our provider call back and speak with consulting physician. [facility] nurse has been updated on patient's intermittent active epistaxis. Dr. Mercado updated with [facility] information. I was back in with patient around 2229 when unit of PRBC was being started. Shortly before, patient had another episode of nose bleeding and could feel blood running down her throat which caused her to vomit. Vomit is red in color and mixed with many Kleenex so unable to measure amount. Bleeding has stopped as I was with patient. Updated Dr. Mercado with bleeding episode, vomiting red, and VS (SBP 110). Primary nurse at bedside with patient. Lab is preparing additional unit of blood to have on stand by for patient if needed overnight. in room, will stay overnight.
[2024-07-13] VITALS (24 sets, daily range): BP systolic 92–144; BP diastolic 56–98; PULSE 89–124; RESP 12–24; TEMP 36.4–37.3; O2SAT 91–100; BMI 21.9
[2024-07-13] MEDS: LORazepam 0.5 MG TABLET PO (03:49)
[2024-07-13] MEDS: HYDROmorphone 0.5 mg/0.5 ml inj IVP (05:30)
[2024-07-13 05:55] LABS: Basophils Absolute Auto 0.01 K/uL (0.00-0.30); Basophils Percent Auto 0.1 % (0.0-3.0); Eosinophils Absolute Auto 0.03 K/uL (0.00-0.50); Eosinophils Percent Auto 0.3 % (0.0-7.0); Hematocrit 29.1 % (33.0-51.0); Hemoglobin* 9.8 gm/dL (12.0-16.0); Immature Granulocytes Abs Auto 0.01 K/uL (0.00-0.30); Immature Granulocytes Pct Auto 0.1 %; Lymphocytes Percent Auto 11.5 % (20-44); Mean Corpuscular HGB Conc 34 gm/dL (32-36); Mean Corpuscular Hemoglobin 33 pg (26-34); Mean Corpuscular Volume 99 fL (80-100); Monocytes Percent Auto 11.3 % (0.0-11.0); Neutrophils Percent Auto 76.7 % (42.0-72.0); Platelet Count* 95 K/uL (140-440); RDW Coefficient of Variation % 14.7 % (11.5-15.5); Red Blood Count 2.95 m/uL (4.00-5.20); White Blood Count* 10.26 K/uL (4.50-11.00)
[2024-07-13 06:02] LABS: Slide Review Reflex No
[2024-07-13 06:07] LABS: Chloride* 99 mmol/L (96-114); Potassium* 3.8 mmol/L (3.6-5.1); Sodium* 133 mmol/L (135-149)
[2024-07-13 06:09] LABS: Creatinine* 0.5 mg/dL (0.5-1.5); Est. Creatinine Clearance* 149.81; Estimated Glomerular Filt Rate 127 ml/min
[2024-07-13 06:10] LABS: Anion Gap 6 mEq/L (7-15); Blood Urea Nitrogen* 19 mg/dL (5-24); Calcium* 8.7 mg/dL (8.4-10.6); Carbon Dioxide* 28 mmol/L (20-32); Glucose* 107 mg/dL (60-115)
--- NOTE | 2024-07-13 07:11 | W.PM.TELEPRO ---
Progress Note: A&P Assessment and plan (1) Epistaxis: Problem details: - severe, required 1U PRBCs in ED 07/12/24 - packing placed in ED, ENT to see 07/12/24 - Keflex 250mg TID, follow Hgb Status: Acute (2) Thrombocytopenia: Problem details: - follow platelets (99 07/12/24) Status: Acute (3) Anemia: Problem details: Status: Acute Assessment and Plan: RN paged overnight because this patient was admitted with anemia, thrombocytopenia, persistent severe nosebleed status post packing,, Afrin, and clamping. However patient continued to have severe epistaxis with large blood clots. Actually overnight patient woke up saying that she had sensation of choking on blood. Called the transfer center and reached out initially to admit IR who said they will see the patient if patient is in house however if the patient does not have a bed they cannot see. They also suggested that if patient came to ER they would defer to ENT to see the patient first. Case was then discussed with ER provider who recommended that patient was doing stable with the active clots and they would recommend intubating patient to protect airway prior to discharge. Case was then also discussed with ENT who said that they may have clinic by the time patient arrives however are willing to consult if the patient arrives. ER was called back in ER said they will not accept the patient unless ENT will see the patient. Eventually the primary ENT was consulted locally and graciously agreed to come to the hospital to see the patient at bedside. Critical care time >90 min Telehealth Hospitalist-PN: Sub Subjective Interval History: Damari Blake is seen as an Interactive Telehealth visit. Damari Blake is a 33 year old male who is Exam Narrative Exam Narrative: Physical Exam + nose bleed, packing in place. Const Vital Signs, click to edit/add: Vital Signs - 24 hr 07/12/24 07:22 07/12/24 09:30 07/12/24 09:45 Temperature 98.0 F Pulse Rate 71 Pulse Rate [Pulse Oximeter] 98 Respiratory Rate 16 Blood Pressure 108/85 Blood Pressure [Right Arm] Blood Pressure [Right Upper Arm] 122/82 93/57 L Pulse Oximetry 98 96 Oxygen Delivery Method Room Air 07/12/24 09:46 07/12/24 10:00 07/12/24 10:02 Temperature Pulse Rate 71 73 102 H Pulse Rate [Pulse Oximeter] Respiratory Rate Blood Pressure 100/87 Blood Pressure [Right Arm] Blood Pressure [Right Upper Arm] Pulse Oximetry 97 98 98 Oxygen Delivery Method 07/12/24 10:03 07/12/24 10:22 07/12/24 10:25 Temperature Pulse Rate 95 Pulse Rate [Pulse Oximeter] Respiratory Rate Blood Pressure 105/92 H Blood Pressure [Right Arm] Blood Pressure [Right Upper Arm] Pulse Oximetry 98 97 Oxygen Delivery Method 07/12/24 10:30 07/12/24 10:37 07/12/24 10:42 Temperature Pulse Rate 125 H 109 H 108 H Pulse Rate [Pulse Oximeter] Respiratory Rate Blood Pressure 136/108 H 125/107 H Blood Pressure [Right Arm] Blood Pressure [Right Upper Arm] Pulse Oximetry 99 98 100 Oxygen Delivery Method 07/12/24 10:45 07/12/24 11:01 07/12/24 11:04 Temperature 98.9 F Pulse Rate 105 H 80 Pulse Rate [Pulse Oximeter] Respiratory Rate 22 Blood Pressure 107/78 91/78 Blood Pressure [Right Arm] Blood Pressure [Right Upper Arm] Pulse Oximetry 93 Oxygen Delivery Method Room Air 07/12/24 11:07 07/12/24 11:11 07/12/24 11:15 Temperature 98.9 F Pulse Rate 89 80 89 Pulse Rate [Pulse Oximeter] Respiratory Rate Blood Pressure 91/78 Blood Pressure [Right Arm] Blood Pressure [Right Upper Arm] Pulse Oximetry 95 96 95 Oxygen Delivery Method 07/12/24 11:20 07/12/24 11:49 07/12/24 12:15 Temperature 98.9 F 98.9 F 99.0 F Pulse Rate 96 90 81 Pulse Rate [Pulse Oximeter] Respiratory Rate 16 16 16 Blood Pressure 116/86 129/95 H 134/93 H Blood Pressure [Right Arm] Blood Pressure [Right Upper Arm] Pulse Oximetry 96 97 96 Oxygen Delivery Method Room Air Room Air Room Air 07/12/24 12:38 07/12/24 13:01 07/12/24 15:00 Temperature 99.3 F 99.0 F 99.6 F Pulse Rate 101 H Pulse Rate [Pulse Oximeter] 103 H 91 Respiratory Rate 16 16 16 Blood Pressure 147/99 H Blood Pressure [Right Arm] 131/95 H 133/94 H Blood Pressure [Right Upper Arm] Pulse Oximetry 99 98 98 Oxygen Delivery Method Room Air Room Air Room Air 07/12/24 15:45 07/12/24 19:00 07/12/24 20:35 Temperature 99.5 F 98.2 F Pulse Rate Pulse Rate [Pulse Oximeter] 97 101 H Respiratory Rate 16 18 Blood Pressure Blood Pressure [Right Arm] 139/90 H 118/76 Blood Pressure [Right Upper Arm] Pulse Oximetry 98 97 91 Oxygen Delivery Method Room Air Room Air Room Air 07/12/24 22:24 07/12/24 22:45 07/12/24 23:00 Temperature 98.1 F 97.6 F 99.0 F Pulse Rate 82 96 95 Pulse Rate [Pulse Oximeter] Respiratory Rate 18 16 16 Blood Pressure 110/71 125/83 119/84 Blood Pressure [Right Arm] Blood Pressure [Right Upper Arm] Pulse Oximetry 97 96 98 Oxygen Delivery Method Room Air Room Air Room Air 07/12/24 23:15 07/12/24 23:30 07/12/24 23:45 Temperature 99.5 F 99.5 F 98.5 F Pulse Rate 95 68 97 Pulse Rate [Pulse Oximeter] Respiratory Rate 18 17 18 Blood Pressure 132/92 H 133/101 H 139/98 H Blood Pressure [Right Arm] Blood Pressure [Right Upper Arm] Pulse Oximetry 98 97 98 Oxygen Delivery Method Room Air Room Air Room Air 07/12/24 23:59 07/13/24 00:35 07/13/24 01:00 Temperature 99.5 F 97.5 F L 97.6 F Pulse Rate 103 H 91 Pulse Rate [Pulse Oximeter] Respiratory Rate 17 16 Blood Pressure 144/95 H 140/98 H Blood Pressure [Right Arm] Blood Pressure [Right Upper Arm] Pulse Oximetry 97 97 Oxygen Delivery Method Room Air Room Air 07/13/24 01:30 07/13/24 02:05 07/13/24 02:50 Temperature 99.1 F 98.0 F Pulse Rate 96 103 H Pulse Rate [Pulse Oximeter] 90 Respiratory Rate 16 Blood Pressure 126/84 124/88 Blood Pressure [Right Arm] 117/79 Blood Pressure [Right Upper Arm] Pulse Oximetry 98 97 97 Oxygen Delivery Method Room Air Room Air 07/13/24 02:50 07/13/24 04:00 Temperature 99.0 F 98.0 F Pulse Rate 90 90 Pulse Rate [Pulse Oximeter] Respiratory Rate 16 18 Blood Pressure 105/71 117/79 Blood Pressure [Right Arm] Blood Pressure [Right Upper Arm] Pulse Oximetry 91 97 Oxygen Delivery Method Room Air Room Air Labs Labs: Laboratory Results - last 24 hr 07/12/24 07/12/24 07/12/24 08:45 12:58 14:06 WBC 6.41 10.04 RBC 3.58 L 3.55 L Hgb 12.0 11.9 L Hct 36.2 35.9 MCV 101 H 101 H MCH 34 34 MCHC 33 33 RDW Coeff of Barry 13.0 13.6 Plt Count 102 L 99 L Neut % (Auto) 70.9 88.1 H Lymph % (Auto) 14.4 L 4.3 L [place] % (Auto) 13.4 H 7.2 Eos % (Auto) 0.6 0.0 Baso % (Auto) 0.5 0.2 Neut # (Auto) 4.55 8.80 H Lymph # (Auto) 0.90 0.40 L [place] # (Auto) 0.90 0.70 Eos # (Auto) 0.04 0.00 Baso # (Auto) 0.03 0.02 Abs Immat Gran (auto) 0.01 0.02 Imm/Tot Granulo (auto) 0.2 0.2 INR 1.00 APTT Sodium 135 Potassium 4.1 Chloride 101 Carbon Dioxide 24 Anion Gap 10 BUN 14 Creatinine 0.5 Estimated Creat Clear Estimated GFR 127 Glucose 88 Calcium 9.1 Total Bilirubin 1.0 Direct Bilirubin 0.4 AST 98 H ALT 73 H Alkaline Phosphatase 69 Total Protein 7.3 Albumin 4.2 HCG, Qual Negative Lab Acknowledgement Test Added Blood Type O Negative Antibody Screen NEGATIVE Crossmatch (AHG) See Detail 07/12/24 07/12/24 07/13/24 16:53 20:53 05:52 WBC 8.72 10.79 10.26 RBC 3.47 L 3.19 L 2.95 L Hgb 11.4 L 10.6 L 9.8 L Hct 34.7 31.8 L 29.1 L MCV 100 100 99 MCH 33 33 33 MCHC 33 33 34 RDW Coeff of Barry 13.8 14.7 Plt Count 100 L 101 L 95 L Neut % (Auto) 82.5 H 76.7 H Lymph % (Auto) 7.7 L 11.5 L [place] % (Auto) 8.8 11.3 H Eos % (Auto) 0.0 0.3 Baso % (Auto) 0.2 0.1 Neut # (Auto) 7.20 H 7.90 H Lymph # (Auto) 0.70 L 1.20 [place] # (Auto) 0.80 1.20 H Eos # (Auto) 0.00 0.03 Baso # (Auto) 0.02 0.01 Abs Immat Gran (auto) 0.07 0.01 Imm/Tot Granulo (auto) 0.8 0.1 INR APTT 25 Sodium 133 L Potassium 3.8 Chloride 99 Carbon Dioxide 28 Anion Gap 6 L BUN 19 Creatinine 0.5 Estimated Creat Clear 149.81 Estimated GFR 127 Glucose 107 Calcium 8.7 Total Bilirubin Direct Bilirubin AST ALT Alkaline Phosphatase Total Protein Albumin HCG, Qual Lab Acknowledgement Blood Type Antibody Screen Crossmatch (AHG) Telehealth: Statement Statement Telehealth Visit: Today's History and Physical is provided via interactive telehealth by Karena Jimenez MD.? Patient is located at [facility].? Provider is located at [facility] Nursing staff assisted with the patient's exam. The visit being done today meets criteria for a telehealth visit and the patient or patient?s parent/guardian is aware the visit is a telehealth visit.
--- NOTE | 2024-07-13 07:27 | PM.IMPN1 ---
Progress Note: A&P Assessment and plan (1) Epistaxis: Problem details: - severe, required 1U PRBCs in ED 07/12/24, given a 2nd unit of PRBCs 07/12/24 - packing placed in ED, ENT taking to OR 07/13/24 - Keflex 250mg TID, follow Hgb Status: Acute (2) Thrombocytopenia: Problem details: - 99 on 07/12/24 - 95 07/13/24 - liver dz vs idiopathic, normal INR and PTT, no family history of bleeding disorders Status: Acute (3) Nausea: Problem details: - likely 2/2 posterior drainage from epistaxis, prn antiemetics Status: Acute Plan - to OR this morning, low risk for anesthetic or operative complications, medically optimized for urgent procedure Subjective Date Seen: 07/13/24 Interval history: Damari is a 33-year-old female without a known history of bleeding disorder, who was admitted last night for epistaxis. History of recurrent nose bleeds, has occasionally required cauterization, but no surgical intervention previously. Last nosebleed that required hospitalization was 4-5 years ago. Her left nare was packed prior to admission last night, did have persistent oozing overnight. Attempt was made to transfer, limited by bed availability. This morning, she saw Dr. Jean of ENT who is taking her to the OR. She has received 2 units of PRBCs, hemoglobin stable at 9.8, platelets 95. INR and PTT within normal limits. History of appendectomy without surgical or anesthetic complications. History of daily alcohol use, none recently as she is actively attempting (negative UPT in ER 07/12/24). Exam Narrative: Exam Narrative: GEN: Awake and nontoxic HEENT: L nare is packed with some oozing around packing CV: RRR, No concerning murmurs R: LCTA bilaterally without concerning wheezing Ext: wwp, no concerning edema Skin: No concerning skin lesions or rashes on exposed skin Neuro: No focal deficits Psych: Appears mildly anxious, otherwise appropriate Const: Vital Signs, click to edit/add: Vital Signs - 24 hr 07/12/24 09:30 07/12/24 09:45 07/12/24 09:46 Temperature Pulse Rate 71 71 Pulse Rate [Pulse Oximeter] Respiratory Rate Blood Pressure 108/85 Blood Pressure [Ri ght Arm] Blood Pressure [Ri ght Upper Arm] 93/57 L Pulse Oximetry 96 97 Oxygen Delivery Me thod 07/12/24 10:00 07/12/24 10:02 07/12/24 10:03 Temperature Pulse Rate 73 102 H 95 Pulse Rate [Pulse Oximeter] Respiratory Rate Blood Pressure 100/87 Blood Pressure [Ri ght Arm] Blood Pressure [Ri ght Upper Arm] Pulse Oximetry 98 98 98 Oxygen Delivery Me thod 07/12/24 10:22 07/12/24 10:25 07/12/24 10:30 Temperature Pulse Rate 125 H Pulse Rate [Pulse Oximeter] Respiratory Rate Blood Pressure 105/92 H Blood Pressure [Ri ght Arm] Blood Pressure [Ri ght Upper Arm] Pulse Oximetry 97 99 Oxygen Delivery Me thod 07/12/24 10:37 07/12/24 10:42 07/12/24 10:45 Temperature Pulse Rate 109 H 108 H 105 H Pulse Rate [Pulse Oximeter] Respiratory Rate Blood Pressure 136/108 H 125/107 H Blood Pressure [Ri ght Arm] Blood Pressure [Ri ght Upper Arm] Pulse Oximetry 98 100 93 Oxygen Delivery Me thod 07/12/24 11:01 07/12/24 11:04 07/12/24 11:07 Temperature 98.9 F 98.9 F Pulse Rate 80 89 Pulse Rate [Pulse Oximeter] Respiratory Rate 22 Blood Pressure 107/78 91/78 91/78 Blood Pressure [Ri ght Arm] Blood Pressure [Ri ght Upper Arm] Pulse Oximetry 95 Oxygen Delivery Me thod Room Air 07/12/24 11:11 07/12/24 11:15 07/12/24 11:20 Temperature 98.9 F Pulse Rate 80 89 96 Pulse Rate [Pulse Oximeter] Respiratory Rate 16 Blood Pressure 116/86 Blood Pressure [Ri ght Arm] Blood Pressure [Ri ght Upper Arm] Pulse Oximetry 96 95 96 Oxygen Delivery Me thod Room Air 07/12/24 11:49 07/12/24 12:15 07/12/24 12:38 Temperature 98.9 F 99.0 F 99.3 F Pulse Rate 90 81 101 H Pulse Rate [Pulse Oximeter] Respiratory Rate 16 16 16 Blood Pressure 129/95 H 134/93 H 147/99 H Blood Pressure [Ri ght Arm] Blood Pressure [Ri ght Upper Arm] Pulse Oximetry 97 96 99 Oxygen Delivery Me thod Room Air Room Air Room Air 07/12/24 13:01 07/12/24 15:00 07/12/24 15:45 Temperature 99.0 F 99.6 F Pulse Rate Pulse Rate [Pulse Oximeter] 103 H 91 Respiratory Rate 16 16 16 Blood Pressure Blood Pressure [Ri ght Arm] 131/95 H 133/94 H Blood Pressure [Ri ght Upper Arm] Pulse Oximetry 98 98 98 Oxygen Delivery Me thod Room Air Room Air Room Air 07/12/24 19:00 07/12/24 20:35 07/12/24 22:24 Temperature 99.5 F 98.2 F 98.1 F Pulse Rate 82 Pulse Rate [Pulse Oximeter] 97 101 H Respiratory Rate 18 18 Blood Pressure 110/71 Blood Pressure [Ri ght Arm] 139/90 H 118/76 Blood Pressure [Ri ght Upper Arm] Pulse Oximetry 97 91 97 Oxygen Delivery Me thod Room Air Room Air Room Air 07/12/24 22:45 07/12/24 23:00 07/12/24 23:15 Temperature 97.6 F 99.0 F 99.5 F Pulse Rate 96 95 95 Pulse Rate [Pulse Oximeter] Respiratory Rate 16 16 18 Blood Pressure 125/83 119/84 132/92 H Blood Pressure [Ri ght Arm] Blood Pressure [Ri ght Upper Arm] Pulse Oximetry 96 98 98 Oxygen Delivery Me thod Room Air Room Air Room Air 07/12/24 23:30 07/12/24 23:45 07/12/24 23:59 Temperature 99.5 F 98.5 F 99.5 F Pulse Rate 68 97 Pulse Rate [Pulse Oximeter] Respiratory Rate 17 18 Blood Pressure 133/101 H 139/98 H Blood Pressure [Ri ght Arm] Blood Pressure [Ri ght Upper Arm] Pulse Oximetry 97 98 Oxygen Delivery Me thod Room Air Room Air 07/13/24 00:35 07/13/24 01:00 07/13/24 01:30 Temperature 97.5 F L 97.6 F Pulse Rate 103 H 91 96 Pulse Rate [Pulse Oximeter] Respiratory Rate 17 16 Blood Pressure 144/95 H 140/98 H 126/84 Blood Pressure [Ri ght Arm] Blood Pressure [Ri ght Upper Arm] Pulse Oximetry 97 97 98 Oxygen Delivery Me thod Room Air Room Air Room Air 07/13/24 02:05 07/13/24 02:50 07/13/24 02:50 Temperature 99.1 F 98.0 F 99.0 F Pulse Rate 103 H 90 Pulse Rate [Pulse Oximeter] 90 Respiratory Rate 16 16 Blood Pressure 124/88 105/71 Blood Pressure [Ri ght Arm] 117/79 Blood Pressure [Ri ght Upper Arm] Pulse Oximetry 97 97 91 Oxygen Delivery Me thod Room Air Room Air 07/13/24 04:00 Temperature 98.0 F Pulse Rate 90 Pulse Rate [Pulse Oximeter] Respiratory Rate 18 Blood Pressure 117/79 Blood Pressure [Ri ght Arm] Blood Pressure [Ri ght Upper Arm] Pulse Oximetry 97 Oxygen Delivery Me thod Room Air Labs Labs: Laboratory Results - last 24 hr 07/12/24 07/12/24 07/12/24 08:45 12:58 14:06 WBC 6.41 10.04 RBC 3.58 L 3.55 L Hgb 12.0 11.9 L Hct 36.2 35.9 MCV 101 H 101 H MCH 34 34 MCHC 33 33 RDW Coeff of Barry 13.0 13.6 Plt Count 102 L 99 L Neut % (Auto) 70.9 88.1 H Lymph % (Auto) 14.4 L 4.3 L Whitman % (Auto) 13.4 H 7.2 Eos % (Auto) 0.6 0.0 Baso % (Auto) 0.5 0.2 Neut # (Auto) 4.55 8.80 H Lymph # (Auto) 0.90 0.40 L Whitman # (Auto) 0.90 0.70 Eos # (Auto) 0.04 0.00 Baso # (Auto) 0.03 0.02 Abs Immat Gran (auto) 0.01 0.02 Imm/Tot Granulo (auto) 0.2 0.2 INR 1.00 APTT Sodium 135 Potassium 4.1 Chloride 101 Carbon Dioxide 24 Anion Gap 10 BUN 14 Creatinine 0.5 Estimated Creat Clear Estimated GFR 127 Glucose 88 Calcium 9.1 Total Bilirubin 1.0 Direct Bilirubin 0.4 AST 98 H ALT 73 H Alkaline Phosphatase 69 Total Protein 7.3 Albumin 4.2 HCG, Qual Negative Lab Acknowledgement Test Added Blood Type O Negative Antibody Screen NEGATIVE Crossmatch (AHG) See Detail 07/12/24 07/12/24 07/13/24 16:53 20:53 05:52 WBC 8.72 10.79 10.26 RBC 3.47 L 3.19 L 2.95 L Hgb 11.4 L 10.6 L 9.8 L Hct 34.7 31.8 L 29.1 L MCV 100 100 99 MCH 33 33 33 MCHC 33 33 34 RDW Coeff of Barry 13.8 14.7 Plt Count 100 L 101 L 95 L Neut % (Auto) 82.5 H 76.7 H Lymph % (Auto) 7.7 L 11.5 L Whitman % (Auto) 8.8 11.3 H Eos % (Auto) 0.0 0.3 Baso % (Auto) 0.2 0.1 Neut # (Auto) 7.20 H 7.90 H Lymph # (Auto) 0.70 L 1.20 Whitman # (Auto) 0.80 1.20 H Eos # (Auto) 0.00 0.03 Baso # (Auto) 0.02 0.01 Abs Immat Gran (auto) 0.07 0.01 Imm/Tot Granulo (auto) 0.8 0.1 INR APTT 25 Sodium 133 L Potassium 3.8 Chloride 99 Carbon Dioxide 28 Anion Gap 6 L BUN 19 Creatinine 0.5 Estimated Creat Clear 149.81 Estimated GFR 127 Glucose 107 Calcium 8.7 Total Bilirubin Direct Bilirubin AST ALT Alkaline Phosphatase Total Protein Albumin HCG, Qual Lab Acknowledgement Blood Type Antibody Screen Crossmatch (AHG)
[2024-07-13] MEDS: 0.9 % SODIUM CHLORIDE 500 ML 500 ML 100 ML IV (07:49)
--- NOTE | 2024-07-13 08:45 | PC.NURSE ---
Shift note ([id number]):?Patient pleasant, alert and oriented. Ambulated independently to bathroom. Tolerated toast and applesauce at HS. 1 Unit of blood given. During administration patients temp increased to 99.5 and blood pressure was elevated. Dr Mercado was updated. Per Dr Mercado stop transfusion, give PRN Tylenol and then resume transfusion after 30 minutes. Patient was monitored frequently. Temps have fluctuated from 97.5 to 99.1 since that time. Blood pressure at end of transfusion was 105/71. Had several nosebleeds through the night. Was coughing, gagging and feeling like she was choking on blood at times. Given PRN Ativan for anxiety and Tylenol for temp of 99.5. Given PRN Dilauded for c/o pain on right side of head,?nose, sinus and ear rated 4-7/10. Had episodes of feeling dizzy. Dr Mercado and [facility] were updated as needed. Pt was felt as though nose balloon was coming out. ED MD came to resident?s room during night to check placement. Per balloon is ok.?Pt has been NPO since midnight per orders. supportive. Was at bedside until 0500.?
[2024-07-13] MEDS: COCAINE HCL 4 % 4 ML SOLUTION NOSTRIL-B (09:15)
[2024-07-13] MEDS: BUPIVACAINE 0.5%/EPINEPHRINE 0.9 MG (30.9 ML) INJECTION (09:15)
[2024-07-13] MEDS: LACTATED RINGERS 1000 ML 1,000 ML 35 ML IV (09:15)
[2024-07-13] MEDS: MUPIROCIN 1 GM PACKET 1 APPLIC TOPICAL (09:20)
--- NOTE | 2024-07-13 09:42 | W.ANESCHARGE ---
Anesthesia Charges Start Date/Time Anesthesia Start Date: 07/13/24 Anesthesia Start Time: 08:53 Stop Date/Time Anesthesia Stop Date: 07/13/24 Anesthesia Stop Time: 09:45 Summary Emergency: ABBI Coding CPT Codes CPT Codes: ANESTH NOSE/SINUS SURGERY - 11811 ([id number]) P2 - PATIENT W/MILD SYST DISEASE, QK - RECREATION SPECIALIST 2-4 CNCRNT ANES PROC, QX - HAND INSPECTOR SVC W/ MD MED DIRECTION Additional Codes: Summary - Emergency: ABBI ([id number])
--- NOTE | 2024-07-13 09:42 | P.ANES_ITS ---
Anesthesia Charges Start Date/Time Anesthesia Start Date: 07/13/24 Anesthesia Start Time: 08:53 Stop Date/Time Anesthesia Stop Date: 07/13/24 Anesthesia Stop Time: 09:45 Summary Emergency: ABBI Coding CPT Codes CPT Codes: ANESTH NOSE/SINUS SURGERY - 70927 ([id number]) P2 - PATIENT W/MILD SYST DISEASE, QK - OFFBEARER SEWER PIPE 2-4 CNCRNT ANES PROC, QX - RAILROAD HAND SVC W/ MD MED DIRECTION Additional Codes: Summary - Emergency: ABBI ([id number])
--- NOTE | 2024-07-13 09:46 | P.ANES_ITS ---
Anesthesia Charges Start Date/Time Anesthesia Start Date: 07/13/24 Anesthesia Start Time: 08:53 Stop Date/Time Anesthesia Stop Date: 07/13/24 Anesthesia Stop Time: 09:45 Summary Emergency: MDA Coding CPT Codes CPT Codes: ANESTH NOSE/SINUS SURGERY - 15787 ([id number]) P2 - PATIENT W/MILD SYST DISEASE, QK - ORDERLY 2-4 CNCRNT ANES PROC Additional Codes: Summary - Emergency: MDA ([id number])
--- NOTE | 2024-07-13 09:46 | W.ANESCHARGE ---
Anesthesia Charges Start Date/Time Anesthesia Start Date: 07/13/24 Anesthesia Start Time: 08:53 Stop Date/Time Anesthesia Stop Date: 07/13/24 Anesthesia Stop Time: 09:45 Summary Emergency: MDA Coding CPT Codes CPT Codes: ANESTH NOSE/SINUS SURGERY - 62908 ([id number]) P2 - PATIENT W/MILD SYST DISEASE, QK - RIVERINE ASSAULT CRAFT CREWMAN 2-4 CNCRNT ANES PROC Additional Codes: Summary - Emergency: MDA ([id number])
--- NOTE | 2024-07-13 10:16 | W.PM.ENTCN ---
HPI- ENT Consult Date of Consult Date Seen: 07/13/24 Patient: [facility] Patient Consult date: 07/13/24 Requesting Physician: Other Primary Care Provider: Janessa Norris Consult Narrative Reason for consult: Severe epistaxis Narrative: Damari Blake is a 33 year old female with prior history of being seen emergency room for epistaxis several years ago and being taken to surgery for cautery. Presented with severe nose bleed left more than right. Required 2 units transfusion hemoglobin is currently above 9. She reports previous bleeds were anterior. She current [place] has a balloon in place. Aunt as tense and anterior packing were not successful with balloon immediately stop bleeding. She is still having some oozing around the balloon. Note also that she has low platelets around 100. [facility] Medical History (Updated 07/13/24 @ 07:33 by Kadie Oviedo MD) Vertigo ?R42 - Dizziness and giddiness (ICD-10) Nausea ?R11.0 - Nausea (ICD-10) Anxiety ?F41.9 - Anxiety disorder, unspecified (ICD-10) Elevated MCV ?R71.8 - Other abnormality of red blood cells (ICD-10) Epistaxis ?R04.0 - Epistaxis (ICD-10) Surgical History (Updated 07/12/24 @ 14:09 by Kadie Oviedo MD) S/P appendectomy ?Z90.49 - Acquired absence of other specified parts of digestive tract (ICD-10) Social History (Updated 07/12/24 @ 14:08 by Kadie Oviedo MD) Narrative: Works outside the home, 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 Nonsmoker, h/o daily ETOH use, less now. No history of withdrawal. Full Code. What is your current living situation?: I presently have a place to live Problems where you live: no known problems Problems where you live details: N/A In the past 12 months, utilities in danger of being shut off: no In past 12 months, lack of transportation kept you from medical appts, meetings, work, or getting things needed for daily living: no In the past 12 mos, have been you worried that your food would run out before you had money to buy more?: never true In the past 12 mos, the food you bought just didn't last and you didn't have money to buy more?: never true Highest level of school completed/degree received: some college, no degree Smoking Status: Never smoker Do you use any of these nicotine containing products: None Second hand tobacco smoke exposure: No How often do you have a drink containing alcohol: 2-3 times a week Alcohol type: wine How many standard drinks containing alcohol do you have on a typical day: 1 or 2 How often do you have six or more drinks on one occasion: Monthly AUDIT-C Alcohol total score: 5 Non-prescribed substance use: denies use Caffeine: Yes (rare red bull) How often does anyone, including family, friends and others, physically hurt you: never How often does anyone, including family, friends and others, insult or talk down to you: never How often does anyone, including family, friends and others, threaten you with harm: never How often does anyone, including family, friends and others, scream or curse at you: never service: No Meds Home Medications and Allergies Allergies Allergy/AdvReac Type Severity Reaction Status Date / Time No Known Drug Allergies Allergy Verified 05/22/24 15:49 Exam Narrative: Exam Narrative: General skin neuro respiratory gait peripheral vascular vocal quality skin of head neck are all negative except no active bleeding balloon in place left side no packing on right side currently no clot in throat Const: Vital Signs, click to edit/add: Vital Signs - 24 hr 07/12/24 10:22 07/12/24 10:25 07/12/24 10:30 Temperature Pulse Rate 125 H Pulse Rate [Pulse Oximeter] Respiratory Rate Blood Pressure 105/92 H Blood Pressure [Ri ght Arm] Pulse Oximetry 97 99 Oxygen Delivery Me thod 07/12/24 10:37 07/12/24 10:42 07/12/24 10:45 Temperature Pulse Rate 109 H 108 H 105 H Pulse Rate [Pulse Oximeter] Respiratory Rate Blood Pressure 136/108 H 125/107 H Blood Pressure [Ri ght Arm] Pulse Oximetry 98 100 93 Oxygen Delivery Me thod 07/12/24 11:01 07/12/24 11:04 07/12/24 11:07 Temperature 98.9 F 98.9 F Pulse Rate 80 89 Pulse Rate [Pulse Oximeter] Respiratory Rate 22 Blood Pressure 107/78 91/78 91/78 Blood Pressure [Ri ght Arm] Pulse Oximetry 95 Oxygen Delivery Me thod Room Air 07/12/24 11:11 07/12/24 11:15 07/12/24 11:20 Temperature 98.9 F Pulse Rate 80 89 96 Pulse Rate [Pulse Oximeter] Respiratory Rate 16 Blood Pressure 116/86 Blood Pressure [Ri ght Arm] Pulse Oximetry 96 95 96 Oxygen Delivery Me thod Room Air 07/12/24 11:49 07/12/24 12:15 07/12/24 12:38 Temperature 98.9 F 99.0 F 99.3 F Pulse Rate 90 81 101 H Pulse Rate [Pulse Oximeter] Respiratory Rate 16 16 16 Blood Pressure 129/95 H 134/93 H 147/99 H Blood Pressure [Ri ght Arm] Pulse Oximetry 97 96 99 Oxygen Delivery Me thod Room Air Room Air Room Air 07/12/24 13:01 07/12/24 15:00 07/12/24 15:45 Temperature 99.0 F 99.6 F Pulse Rate Pulse Rate [Pulse Oximeter] 103 H 91 Respiratory Rate 16 16 16 Blood Pressure Blood Pressure [Ri ght Arm] 131/95 H 133/94 H Pulse Oximetry 98 98 98 Oxygen Delivery Me thod Room Air Room Air Room Air 07/12/24 19:00 07/12/24 20:35 07/12/24 22:24 Temperature 99.5 F 98.2 F 98.1 F Pulse Rate 82 Pulse Rate [Pulse Oximeter] 97 101 H Respiratory Rate 18 18 Blood Pressure 110/71 Blood Pressure [Ri ght Arm] 139/90 H 118/76 Pulse Oximetry 97 91 97 Oxygen Delivery Me thod Room Air Room Air Room Air 07/12/24 22:45 07/12/24 23:00 07/12/24 23:15 Temperature 97.6 F 99.0 F 99.5 F Pulse Rate 96 95 95 Pulse Rate [Pulse Oximeter] Respiratory Rate 16 16 18 Blood Pressure 125/83 119/84 132/92 H Blood Pressure [Ri ght Arm] Pulse Oximetry 96 98 98 Oxygen Delivery Me thod Room Air Room Air Room Air 07/12/24 23:30 07/12/24 23:45 07/12/24 23:59 Temperature 99.5 F 98.5 F 99.5 F Pulse Rate 68 97 Pulse Rate [Pulse Oximeter] Respiratory Rate 17 18 Blood Pressure 133/101 H 139/98 H Blood Pressure [Ri ght Arm] Pulse Oximetry 97 98 Oxygen Delivery Me thod Room Air Room Air 07/13/24 00:35 07/13/24 01:00 07/13/24 01:30 Temperature 97.5 F L 97.6 F Pulse Rate 103 H 91 96 Pulse Rate [Pulse Oximeter] Respiratory Rate 17 16 Blood Pressure 144/95 H 140/98 H 126/84 Blood Pressure [Ri ght Arm] Pulse Oximetry 97 97 98 Oxygen Delivery Me thod Room Air Room Air Room Air 07/13/24 02:05 07/13/24 02:50 07/13/24 02:50 Temperature 99.1 F 98.0 F 99.0 F Pulse Rate 103 H 90 Pulse Rate [Pulse Oximeter] 90 Respiratory Rate 16 16 Blood Pressure 124/88 105/71 Blood Pressure [Ri ght Arm] 117/79 Pulse Oximetry 97 97 91 Oxygen Delivery Me od Room Air Room Air 07/13/24 04:00 07/13/24 07:00 07/13/24 07:00 Temperature 98.0 F 98.1 F Pulse Rate 90 Pulse Rate [Pulse Oximeter] 89 Respiratory Rate 18 16 16 Blood Pressure 117/79 Blood Pressure [Ri ght Arm] 111/75 Pulse Oximetry 97 97 Oxygen Delivery Me od Room Air Room Air 07/13/24 07:39 07/13/24 09:40 07/13/24 09:45 Temperature 99.1 F 98.4 F Pulse Rate 120 H 110 H 113 H Pulse Rate [Pulse Oximeter] Respiratory Rate 16 16 14 Blood Pressure 110/84 101/61 99/56 L Blood Pressure [Ri ght Arm] Pulse Oximetry 95 96 97 Oxygen Delivery Me thod Room Air Room Air 07/13/24 09:50 07/13/24 09:55 07/13/24 10:05 Temperature Pulse Rate 124 H 96 104 H Pulse Rate [Pulse Oximeter] Respiratory Rate 13 14 12 Blood Pressure 92/59 L 102/62 108/70 Blood Pressure [Ri ght Arm] Pulse Oximetry 97 98 97 Oxygen Delivery Me thod 07/13/24 10:09 Temperature 98.6 F Pulse Rate 102 H Pulse Rate [Pulse Oximeter] Respiratory Rate 14 Blood Pressure 112/67 Blood Pressure [Ri ght Arm] Pulse Oximetry 98 Oxygen Delivery Me thod ENT-CN: Result Labs Labs: Short CBC 07/12/24 07/12/24 07/12/24 Range/Units 12:58 16:53 20:53 WBC 10.04 8.72 10.79 (4.50-11.00) K/uL Hgb 11.9 L 11.4 L 10.6 L (12.0-16.0) gm/dL Hct 35.9 34.7 31.8 L (33.0-51.0) % Plt Count 99 L 100 L 101 L (140-440) K/uL 07/13/24 Range/Units 05:52 WBC 10.26 (4.50-11.00) K/uL Hgb 9.8 L (12.0-16.0) gm/dL Hct 29.1 L (33.0-51.0) % Plt Count 95 L (140-440) K/uL BMP 07/12/24 07/13/24 08:45 05:52 Sodium 135 133 L Potassium 4.1 3.8 Chloride 101 99 Carbon Dioxide 24 28 BUN 14 19 Creatinine 0.5 0.5 Glucose 88 107 Calcium 9.1 8.7 Liver Function 07/12/24 Range/Units 08:45 Total Bilirubin 1.0 (0.1-1.5) mg/dL Direct Bilirubin 0.4 (0.0-0.5) mg/dL AST 98 H (12-35) U/L ALT 73 H (4-35) U/L Alkaline Phosphatase 69 (40-150) U/L Albumin 4.2 (3.3-5.0) g/dL Assessment and Plan Assessment and plan (1) Thrombocytopenia: Problem comment: - 99 on 07/12/24 - 95 07/13/24 - liver dz vs idiopathic, normal INR and PTT, no family history of bleeding disorders Status: Acute (2) Epistaxis: Problem comment: - severe, required 1U PRBCs in ED 07/12/24, given a 2nd unit of PRBCs 07/12/24 - packing placed in ED, ENT taking to OR 07/13/24 - Keflex 250mg TID, follow Hgb Status: Acute Plan Severe epistaxis in the presence of thrombocytopenia. She also does consume alcohol which may relate. Most likely this is a posterior bleed. Because she is still oozing around the pack we discussed option of going to the operating room to attempt cautery and repacking to put a more comfortable pack in. She is very amenable to that risks include further bleeding need for transfusion anesthesia failure etc. she understands and wishes to proceed will schedule. Total Time Spent Total Time Spent: 50 minutes
--- NOTE | 2024-07-13 10:19 | W.PM.ENTPROC ---
Procedure Note Date of procedure: 07/13/24 Procedure: Preoperative diagnosis left-sided epistaxis unclear if anterior posterior Postoperative diagnosis bleeding appears to be mainly posterior although there was some bleeding on the left anterior mid septum new Procedure cautery epistaxis anterior and posterior complex with repacking of nose. Under general endotracheal anesthesia patient was prepped draped usual fashion. The right side the nose was decongested with cocaine pledgets. The balloon was deflated and the left side the nose decongested with cocaine pledgets. No dramatic bleeding was noted. On the left side at the mid septal area I cauterized the cut a couple of oozing vessels. The sphenopalatine region was inspected there appeared to be some oozing from there as well this was cauterized. This is a dissolvable gel packing was placed followed by mirror 2 pieces of Merocel packing. The patient procedure well and was taken recovery in satisfactory condition. Blood loss during procedure was less than 10 mL Surgeon: Kadie Oviedo MD
[2024-07-13 12:04] LABS: Basophils Absolute Auto 0.02 K/uL (0.00-0.30); Basophils Percent Auto 0.2 % (0.0-3.0); Hematocrit 25.4 % (33.0-51.0); Hemoglobin* 8.6 gm/dL (12.0-16.0); Immature Granulocytes Abs Auto 0.01 K/uL (0.00-0.30); Immature Granulocytes Pct Auto 0.1 %; Lymphocytes Percent Auto 4.2 % (20-44); Mean Corpuscular HGB Conc 34 gm/dL (32-36); Mean Corpuscular Hemoglobin 33 pg (26-34); Mean Corpuscular Volume 98 fL (80-100); Monocytes Percent Auto 2.9 % (0.0-11.0); Neutrophils Percent Auto 92.6 % (42.0-72.0); Platelet Count* 91 K/uL (140-440); RDW Coefficient of Variation % 14.7 % (11.5-15.5); Red Blood Count 2.58 m/uL (4.00-5.20); White Blood Count* 8.87 K/uL (4.50-11.00)
[2024-07-13 12:05] LABS: Slide Review Reflex No
[2024-07-13] MEDS: cephALEXin 250 MG CAPSULE PO ×2 (14:21→21:14)
--- NOTE | 2024-07-13 16:21 | PM.EN ---
Chart Event Note Date Seen: 07/13/24 Chart Event Note: Had been doing well. Had a 2 hour nap. Awoke from the nap and started to briskly bleed from the left nares again. Held pressure and after about 40 minutes the bleeding subsided substantially. Vital signs well standing obtained demonstrating systolic blood pressure of 95, heart rate 156, respiratory rate 12. Vital signs supine demonstrated systolic blood pressure 99, heart rate 102, respiratory rate 12. Dr. Jean, ENT, assessed patient and placed a dual-chamber balloon in the left nares. In time the bleeding abated. Ordered stat CBC. Ordered stat 1 unit packed red blood cell transfusion. Ordered another unit of blood for transfusion. Will be attempting to transfer patient to a tertiary medical facility with neural interventional radiology capabilities for angiogram and embolization. Patient agreeable with above stated plans and recommendations.
[2024-07-13 16:29] LABS: Hematocrit 25.5 % (33.0-51.0); Hemoglobin* 8.6 gm/dL (12.0-16.0); Mean Corpuscular HGB Conc 34 gm/dL (32-36); Mean Corpuscular Hemoglobin 33 pg (26-34); Mean Corpuscular Volume 99 fL (80-100); Platelet Count* 108 K/uL (140-440); Red Blood Count 2.59 m/uL (4.00-5.20); White Blood Count* 8.43 K/uL (4.50-11.00)
[2024-07-13 16:34] LABS: Slide Review Reflex No
--- NOTE | 2024-07-13 16:39 | W.PM.ENTPN ---
ENT-PN: Subj Subjective Time Seen by Provider: 16:00 Date Seen: 07/13/24 Interval history: Damari is a 33-year-old female without a known history of bleeding disorder, who was admitted last night for epistaxis. History of recurrent nose bleeds, has occasionally required cauterization, but no surgical intervention previously. Last nosebleed that required hospitalization was 4-5 years ago. Her left nare was packed prior to admission last night, did have persistent oozing overnight. Attempt was made to transfer, limited by bed availability. This morning, she saw Dr. Jean of ENT who is taking her to the OR. She has received 2 units of PRBCs, hemoglobin stable at 9.8, platelets 95. INR and PTT within normal limits. History of appendectomy without surgical or anesthetic complications. History of daily alcohol use, none recently as she is actively attempting (negative UPT in ER 07/12/24). Developed brisk bleeding this afternoon. Lost estimated half cup per so possibly more. Hemoglobin pending. She was orthostatic. Progress Note: A&P Assessment and plan (1) Thrombocytopenia: Problem details: - 99 on 07/12/24 - 95 07/13/24 - liver dz vs idiopathic, normal INR and PTT, no family history of bleeding disorders Status: Acute (2) Epistaxis: Problem details: - severe, required 1U PRBCs in ED 07/12/24, given a 2nd unit of PRBCs 07/12/24 - packing placed in ED, ENT taking to OR 07/13/24 - Keflex 250mg TID, follow Hgb Dual-chamber balloon pack placed with good control. Will observe and try to arrange transfer for interventional radiology. Status: Acute Plan Severe left epistaxis likely posterior requiring transfusions. Was cauterized operating room and seemed to be doing well but several hours later had significant bleeding. A dual-chamber balloon was placed with decent control. We will try to arrange transfer for interventional radiology. Time Spent With Patient Total time spent: 45 minutes Exam Narrative: Exam Narrative: Hemodynamically stable. Only moderate bleeding by the time I arrived. I suction clot from the nose and placed a dual-chamber balloon pack which seemed to control the bleeding with all for all but a small trickle. Const: Vital Signs, click to edit/add: Vital Signs - 24 hr 07/12/24 19:00 07/12/24 20:35 07/12/24 22:24 Temperature 99.5 F 98.2 F 98.1 F Pulse Rate 82 Pulse Rate [Pulse Oximeter] 97 101 H Respiratory Rate 18 18 Blood Pressure 110/71 Blood Pressure [Ri ght Arm] 139/90 H 118/76 Pulse Oximetry 97 91 97 Oxygen Delivery Me thod Room Air Room Air Room Air 07/12/24 22:45 07/12/24 23:00 07/12/24 23:15 Temperature 97.6 F 99.0 F 99.5 F Pulse Rate 96 95 95 Pulse Rate [Pulse Oximeter] Respiratory Rate 16 16 18 Blood Pressure 125/83 119/84 132/92 H Blood Pressure [Ri ght Arm] Pulse Oximetry 96 98 98 Oxygen Delivery Me thod Room Air Room Air Room Air 07/12/24 23:30 07/12/24 23:45 07/12/24 23:59 Temperature 99.5 F 98.5 F 99.5 F Pulse Rate 68 97 Pulse Rate [Pulse Oximeter] Respiratory Rate 17 18 Blood Pressure 133/101 H 139/98 H Blood Pressure [Ri ght Arm] Pulse Oximetry 97 98 Oxygen Delivery Me thod Room Air Room Air 07/13/24 00:35 07/13/24 01:00 07/13/24 01:30 Temperature 97.5 F L 97.6 F Pulse Rate 103 H 91 96 Pulse Rate [Pulse Oximeter] Respiratory Rate 17 16 Blood Pressure 144/95 H 140/98 H 126/84 Blood Pressure [Ri ght Arm] Pulse Oximetry 97 97 98 Oxygen Delivery Me thod Room Air Room Air Room Air 07/13/24 02:05 07/13/24 02:50 07/13/24 02:50 Temperature 99.1 F 98.0 F 99.0 F Pulse Rate 103 H 90 Pulse Rate [Pulse Oximeter] 90 Respiratory Rate 16 16 Blood Pressure 124/88 105/71 Blood Pressure [Ri ght Arm] 117/79 Pulse Oximetry 97 97 91 Oxygen Delivery Me thod Room Air Room Air 07/13/24 04:00 07/13/24 07:00 07/13/24 07:00 Temperature 98.0 F 98.1 F Pulse Rate 90 Pulse Rate [Pulse Oximeter] 89 Respiratory Rate 18 16 16 Blood Pressure 117/79 Blood Pressure [Ri ght Arm] 111/75 Pulse Oximetry 97 97 Oxygen Delivery Me thod Room Air Room Air 07/13/24 07:39 07/13/24 09:40 07/13/24 09:45 Temperature 99.1 F 98.4 F Pulse Rate 120 H 110 H 113 H Pulse Rate [Pulse Oximeter] Respiratory Rate 16 16 14 Blood Pressure 110/84 101/61 99/56 L Blood Pressure [Ri ght Arm] Pulse Oximetry 95 96 97 Oxygen Delivery Me thod Room Air Room Air 07/13/24 09:50 07/13/24 09:55 07/13/24 10:05 Temperature Pulse Rate 124 H 96 104 H Pulse Rate [Pulse Oximeter] Respiratory Rate 13 14 12 Blood Pressure 92/59 L 102/62 108/70 Blood Pressure [Ri ght Arm] Pulse Oximetry 97 98 97 Oxygen Delivery Me thod 07/13/24 10:09 07/13/24 11:00 07/13/24 16:17 Temperature 98.6 F 98.3 F 98.9 F Pulse Rate 102 H 107 H Pulse Rate [Pulse Oximeter] 107 H Respiratory Rate 14 16 24 Blood Pressure 112/67 99/71 Blood Pressure [Ri ght Arm] 113/73 Pulse Oximetry 98 99 98 Oxygen Delivery Me thod Room Air Room Air ENT-PN: Obj Labs Labs: Laboratory Results - last 24 hr 07/12/24 07/12/24 07/12/24 08:45 16:53 20:53 WBC 8.72 10.79 RBC 3.47 L 3.19 L Hgb 11.4 L 10.6 L Hct 34.7 31.8 L MCV 100 100 MCH 33 33 MCHC 33 33 RDW Coeff of Barry 13.8 Plt Count 100 L 101 L Neut % (Auto) 82.5 H Lymph % (Auto) 7.7 L [place] % (Auto) 8.8 Eos % (Auto) 0.0 Baso % (Auto) 0.2 Neut # (Auto) 7.20 H Lymph # (Auto) 0.70 L [place] # (Auto) 0.80 Eos # (Auto) 0.00 Baso # (Auto) 0.02 Abs Immat Gran (auto) 0.07 Imm/Tot Granulo (auto) 0.8 APTT 25 Sodium Potassium Chloride Carbon Dioxide Anion Gap BUN Creatinine Estimated Creat Clear Estimated GFR Glucose Calcium Blood Type O Negative Antibody Screen NEGATIVE Crossmatch ([facility]) See Detail 07/13/24 07/13/24 07/13/24 05:52 11:56 16:23 WBC 10.26 8.87 8.43 RBC 2.95 L 2.58 L 2.59 L Hgb 9.8 L 8.6 L 8.6 L Hct 29.1 L 25.4 L 25.5 L MCV 99 98 99 MCH 33 33 33 MCHC 34 34 34 RDW Coeff of Barry 14.7 14.7 Plt Count 95 L 91 L 108 L Neut % (Auto) 76.7 H 92.6 H Lymph % (Auto) 11.5 L 4.2 L [place] % (Auto) 11.3 H 2.9 Eos % (Auto) 0.3 0.0 Baso % (Auto) 0.1 0.2 Neut # (Auto) 7.90 H 8.20 H Lymph # (Auto) 1.20 0.40 L [place] # (Auto) 1.20 H 0.30 Eos # (Auto) 0.03 0.00 Baso # (Auto) 0.01 0.02 Abs Immat Gran (auto) 0.01 0.01 Imm/Tot Granulo (auto) 0.1 0.1 APTT Sodium 133 L Potassium 3.8 Chloride 99 Carbon Dioxide 28 Anion Gap 6 L BUN 19 Creatinine 0.5 Estimated Creat Clear 149.81 Estimated GFR 127 Glucose 107 Calcium 8.7 Blood Type Antibody Screen Crossmatch ([facility])
[2024-07-13] MEDS: ACETAMINOPHEN 325 MG TABLET 975 MG PO (17:29)
[2024-07-13] MEDS: GUAIF/CODEINE 200/20MG/10 ML SOLUTION PO ×2 (17:29→21:15)
[2024-07-13] MEDS: 0.9 % SODIUM CHLORIDE 1000 ml 1,000 ML 125 ML IV (19:11)
[2024-07-13 20:46] LABS: Hematocrit 24.4 % (33.0-51.0); Hemoglobin* 8.3 gm/dL (12.0-16.0); Mean Corpuscular HGB Conc 34 gm/dL (32-36); Mean Corpuscular Hemoglobin 32 pg (26-34); Mean Corpuscular Volume 95 fL (80-100); Platelet Count* 86 K/uL (140-440); Red Blood Count 2.56 m/uL (4.00-5.20); White Blood Count* 8.97 K/uL (4.50-11.00)
[2024-07-13 20:57] LABS: Slide Review Reflex No
--- NOTE | 2024-07-13 21:25 | P.DS_ITS ---
DS: Providers Provider Date Seen: 07/13/24 Date of admission: 07/12/24 13:22 Primary care physician: Janessa Norris Admitting Clinician: Kadie Oviedo MD Attending Physician on discharge: Tej Lott MD Date of Discharge: 07/13/24 DS: Diagnosis Discharge Diagnosis (1) Epistaxis: Status: Acute Problem details: - history of severe epistaxis - severe, required 1U PRBCs in ED 07/12/24, a 2nd unit of PRBCs 07/12/24, a 3rd unit pf PRBC 07/13/24 - packing placed in ED, ENT took to OR 07/13/24 and cauterized and packed - 6 hours post operatively started bleeding again and dual-chamber balloon pack placed with fair control - Dr. Katlin Uribe, ENT, accepted patient for transfer to [employer], [place] (2) Thrombocytopenia: Status: Acute Problem details: - 99 on 07/12/24 - 86 07/13/24 - liver dz vs idiopathic, normal INR and PTT, no family history of bleeding disorders (3) Anemia: Status: Acute Problem details: 07/12/24 admission Hg 12; 07/13/24, 2 hours after 3rd unit of PRBC transfusion Hg is 8.3 (4) Hypovolemic shock: Status: Acute Problem details: At discharge has resting HR 102 bpm, and upon standing HR increases to 156 bpm, with SBP 100 mmHg - ECG demonstrates NSR DS: Summary Hospital Course Hospital Course: 33-year-old woman with history of epistaxis and mild thrombocytopenia presented to the [facility] Emergency Department on 07/12/2024 with epistaxis that was not resolving with her efforts in her home. Attempts to stabilize this in the emergency department were eventually successful after 4 hours of efforts. A dual-chamber epistax system was deployed to the left nasal passage. She continued to have intermittent episodes of bleeding. We do not have ear nose throat specialist in our hospital. We were able to speak with an ear nose throat specialist who advised we attempt to transfer patient to a tertiary medical center that might accept her and have ENT services as well as Interventional Radiology Services. All systems we attempted to call initially had no bed availability and were on diversion status. 1 hospital, [facility], put her on a waiting list, and today they still do not have a bed available for her. Dr. Eren Jean, ENT, from the [facility] drove down to our hospital to see the patient on the morning of 07/13/2024. He brought her to the OR. He identified some oozing vessels and cauterized these and then place packing. Continue to monitor. Patient was brought back to the hospital floor for additional monitoring given the severity of her epistaxis. She did well for roughly 6 hours and then her no started to bleed again. After achieving hemostasis with pressure we advanced the dual-chamber device into the left nasal passage, inflated the posterior chamber and then slowly inflated the anterior chamber and eventually were able to achieve a modicum of resolution of the epistaxis. Patient had obvious hypovolemic shock due to acute blood loss and acute blood loss anemia. During the course of hospitalization she received a total of 3 units of packed red blood cells. Hemoglobin on presentation was 12. Two hours after the 3rd unit of packed red blood cells was transfused this evening, repeat hemoglobin was 8.3. Prior to discharge from the hospital her resting heart rate is 100 beats per minute in the semi recumbent position with head of bed elevated about 60?. Systolic blood pressure at rest about 100 mmHg. Upon standing the resting heart rate increased to 156 beats per minute the systolic blood pressure remained about 100 mm Hg and she notes minimal lightheadedness. We continue to administer normal saline intravenously. In time we are able to arrange for patient to be transferred to the [facility], [place], [place], with accepting physician Dr. Katlin Uribe. Status at Discharge Functional status at discharge: bed bound Overall status at discharge: patient is not back to baseline Time Spent with Patient Time attestation: Total time spent providing and/or coordinating discharge services: Time spent: Greater than 30 minutes Exam Narrative: Exam Narrative: HEENT: L nare is packed with minimal oozing around packing CV: RRR, No concerning murmurs R: CTA bilaterally without concerning wheezing Ext: no concerning edema, capillary refill less than 3 seconds Skin: No concerning skin lesions or rashes on exposed skin Neuro: No focal deficits Psych: Appears mildly anxious, otherwise appropriate Const: Vital Signs, click to edit/add: Vital Signs - 24 hr 07/12/24 22:24 07/12/24 22:45 07/12/24 23:00 Temperature 98.1 F 97.6 F 99.0 F Pulse Rate 82 96 95 Pulse Rate [Pulse Oximeter] Respiratory Rate 18 16 16 Blood Pressure 110/71 125/83 119/84 Blood Pressure [Ri ght Arm] Pulse Oximetry 97 96 98 Oxygen Delivery Me thod Room Air Room Air Room Air 07/12/24 23:15 07/12/24 23:30 07/12/24 23:45 Temperature 99.5 F 99.5 F 98.5 F Pulse Rate 95 68 97 Pulse Rate [Pulse Oximeter] Respiratory Rate 18 17 18 Blood Pressure 132/92 H 133/101 H 139/98 H Blood Pressure [Ri ght Arm] Pulse Oximetry 98 97 98 Oxygen Delivery Me thod Room Air Room Air Room Air 07/12/24 23:59 07/13/24 00:35 07/13/24 01:00 Temperature 99.5 F 97.5 F L 97.6 F Pulse Rate 103 H 91 Pulse Rate [Pulse Oximeter] Respiratory Rate 17 16 Blood Pressure 144/95 H 140/98 H Blood Pressure [Ri ght Arm] Pulse Oximetry 97 97 Oxygen Delivery Me thod Room Air Room Air 07/13/24 01:30 07/13/24 02:05 07/13/24 02:50 Temperature 99.1 F 98.0 F Pulse Rate 96 103 H Pulse Rate [Pulse Oximeter] 90 Respiratory Rate 16 Blood Pressure 126/84 124/88 Blood Pressure [Ri ght Arm] 117/79 Pulse Oximetry 98 97 97 Oxygen Delivery Me thod Room Air Room Air 07/13/24 02:50 07/13/24 04:00 07/13/24 07:00 Temperature 99.0 F 98.0 F Pulse Rate 90 90 Pulse Rate [Pulse Oximeter] Respiratory Rate 16 18 16 Blood Pressure 105/71 117/79 Blood Pressure [Ri ght Arm] Pulse Oximetry 91 97 Oxygen Delivery Me thod Room Air Room Air 07/13/24 07:00 07/13/24 07:39 07/13/24 09:40 Temperature 98.1 F 99.1 F 98.4 F Pulse Rate 120 H 110 H Pulse Rate [Pulse Oximeter] 89 Respiratory Rate 16 16 16 Blood Pressure 110/84 101/61 Blood Pressure [Ri ght Arm] 111/75 Pulse Oximetry 97 95 96 Oxygen Delivery Me thod Room Air Room Air Room Air 07/13/24 09:45 07/13/24 09:50 07/13/24 09:55 Temperature Pulse Rate 113 H 124 H 96 Pulse Rate [Pulse Oximeter] Respiratory Rate 14 13 14 Blood Pressure 99/56 L 92/59 L 102/62 Blood Pressure [Ri ght Arm] Pulse Oximetry 97 97 98 Oxygen Delivery Me thod 07/13/24 10:05 07/13/24 10:09 07/13/24 11:00 Temperature 98.6 F 98.3 F Pulse Rate 104 H 102 H Pulse Rate [Pulse Oximeter] 107 H Respiratory Rate 12 14 16 Blood Pressure 108/70 112/67 Blood Pressure [Ri ght Arm] 113/73 Pulse Oximetry 97 98 99 Oxygen Delivery Me thod Room Air 07/13/24 15:00 07/13/24 16:17 07/13/24 16:34 Temperature 98.4 F 98.9 F 98.6 F Pulse Rate 107 H 107 H Pulse Rate [Pulse Oximeter] 107 H Respiratory Rate 24 24 20 Blood Pressure 99/71 124/98 H Blood Pressure [Ri ght Arm] 99/71 Pulse Oximetry 98 98 100 Oxygen Delivery Hi thod Room Air Room Air Room Air 07/13/24 16:35 07/13/24 17:04 07/13/24 17:34 Temperature 98.5 F 98.5 F 98.7 F Pulse Rate 111 H 111 H 97 Pulse Rate [Pulse Oximeter] Respiratory Rate 20 20 20 Blood Pressure 123/83 124/98 H 110/76 Blood Pressure [Ri ght Arm] Pulse Oximetry 100 100 98 Oxygen Delivery Hi thod Room Air Room Air Room Air 07/13/24 18:00 07/13/24 19:34 Temperature 98.6 F 98.6 F Pulse Rate 104 H Pulse Rate [Pulse Oximeter] 104 H Respiratory Rate 18 18 Blood Pressure 104/82 Blood Pressure [Ri ght Arm] 104/82 Pulse Oximetry 98 98 Oxygen Delivery Me thod Room Air Room Air DS: Data Data Completed and Pending Labs on day of discharge: Labs from last 24 hours 07/13/24 07/13/24 07/13/24 20:39 16:23 11:56 WBC 8.97 8.43 8.87 RBC 2.56 L 2.59 L 2.58 L Hgb 8.3 L 8.6 L 8.6 L Hct 24.4 L 25.5 L 25.4 L MCV 95 99 98 MCH 32 33 33 MCHC 34 34 34 RDW Coeff of Barry 14.7 Plt Count 86 L 108 L 91 L Neut % (Auto) 92.6 H Lymph % (Auto) 4.2 L [place] % (Auto) 2.9 Eos % (Auto) 0.0 Baso % (Auto) 0.2 Neut # (Auto) 8.20 H Lymph # (Auto) 0.40 L [place] # (Auto) 0.30 Eos # (Auto) 0.00 Baso # (Auto) 0.02 Abs Immat Gran (auto) 0.01 Imm/Tot Granulo (auto) 0.1 Sodium Potassium Chloride Carbon Dioxide Anion Gap BUN Creatinine Estimated Creat Clear Estimated GFR Glucose Calcium Blood Type Antibody Screen Crossmatch ([facility]) 07/13/24 07/12/24 05:52 08:45 WBC 10.26 RBC 2.95 L Hgb 9.8 L Hct 29.1 L MCV 99 MCH 33 MCHC 34 RDW Coeff of Barry 14.7 Plt Count 95 L Neut % (Auto) 76.7 H Lymph % (Auto) 11.5 L [place] % (Auto) 11.3 H Eos % (Auto) 0.3 Baso % (Auto) 0.1 Neut # (Auto) 7.90 H Lymph # (Auto) 1.20 [place] # (Auto) 1.20 H Eos # (Auto) 0.03 Baso # (Auto) 0.01 Abs Immat Gran (auto) 0.01 Imm/Tot Granulo (auto) 0.1 Sodium 133 L Potassium 3.8 Chloride 99 Carbon Dioxide 28 Anion Gap 6 L BUN 19 Creatinine 0.5 Estimated Creat Clear 149.81 Estimated GFR 127 Glucose 107 Calcium 8.7 Blood Type O Negative Antibody Screen NEGATIVE Crossmatch ([facility]) See Detail Discharge Plan Discharge Disposition: Xfer Acute Care Hospital Discharge Location: [facility] Date of Admission: 07/12/24 13:22 Attending Provider on Discharge: Tej Lott Primary Care Provider: Janessa Norris Condition: Guarded Discharge Orders: Transfer of Care to Other Hospital (ORDER); Ordered 07/13/24 Ordered By: Tej Lott Oxygen: No Urinary Catheter: No Services not available here: 24-hour ENT services and neural interventional radi ology services
--- NOTE | 2024-07-13 23:58 | PC.NURSE ---
Transfer to [facility]: Received pt at 1500, pt had nosebleed of left nostril upon assessment. Changing gauze every 30 seconds. Notified (Dr. Lott) who stated to call ENT (Dr. Rodrigues). Dr. Rodrigues stated he would not arrive for 45 minutes but to have Hospitalist?place epistax, double lumen, in left nostril, to slow/stop the bleeding.?Pt refused placement of this. Staff got pt up to sink and applied pressure to the nares, still switching gauze every 30-[address] Rodrigues to update on situation, collected supplies requested, maintained pressure on the nares per MD request. Vital signs obtained while pt standing at sink, BP 99/71, HR 156. Per MD Lott, stat EKG was ordered, got pt back into bed and situated. Per MD, EKG stated Sinus Tach, HR 107. Bleeding slowed after about 10 minutes of pressure applied, changing gauze every 2-[address] Rodrigues arrived, talked pt into placing the epistax, double lumen, in left nostril.?MD Lott ordered stat unit of blood, reviewed consent with pt, 1 unit given, completed at 1734, vitals stable. After placement of epistax bleeding slowed and gauze was changed every [address] Lott spoke with [facility] who accepted pt, nurse to nurse given to Rylee DELGADO. Pt stable, BP 132/96, HR 110, transferred via EMS at 2135. ?
== END 2024-07-13 21:35 | disposition short-term general hospital (02) | DRG 150 ==
LOC: ED 09:36 → MEDSURG 12:50
PROVIDERS: Internal Medicine; Otolaryngology; Admitting Provider Family Medicine; Emergency Provider Emergency Medicine; PCP Emergency Medicine; Visit Provider Family Medicine
PROC: 093K7ZZ Control Bleeding in Nasal Mucosa and Soft Tissue, Via Natural or Artificial Opening (ICD-10-PCS; principal; 2024-07-13 08:30)
DX: R04.0 Epistaxis (principal); R57.1 Hypovolemic shock; D62 Acute posthemorrhagic anemia; D69.6 Thrombocytopenia, unspecified; R42 Dizziness and giddiness; R11.0 Nausea; F41.9 Anxiety disorder, unspecified; K21.9 Gastro-esophageal reflux disease without esophagitis
CPT/HCPCS: 30901; 00160; 36415; 36430; 80048; 80076; 84703; 85025; 85027; 85610; 85730; 86850; 86900; 86901; 86922; 93005; 94761; 99140; 99285; 99291; A9270; J0330; J1100; J1171; J2060; J2250; J2405; J2704; J2765; J3010; J7030; J7120; P9016

== ENCOUNTER 2024-07-13 21:28 | Outpatient (CLI) | payer OTHER, SELFPAY | END 2024-07-13 21:29 | disposition home or self-care (01) | LOC: AMB 07-25 11:20 | PROVIDERS: PCP Emergency Medicine; Visit Provider Emergency Medicine | DX: R04.0 Epistaxis (principal); D69.6 Thrombocytopenia, unspecified; D64.9 Anemia, unspecified | CPT/HCPCS: A0425; A0434 ==